=== PATIENT | female | born 1995 | race African-American/Black ===

== ENCOUNTER 2024-01-26 09:47 | Emergency (ER) | payer BC, SELFPAY ==
--- NOTE | ~2024-01-26 | US_ITS ---
EXAMINATION: US pelvic complete w TV INDICATION: Abnormal uterine bleeding. Pelvic pain. Comparison:No prior studies for comparison. TECHNIQUE: Multiple transabdominal and endovaginal sonographic images of the pelvis performed. FINDINGS: The uterus measures 8.3 x 4.2 x 4.8 cm. The endometrial complex measures 7 mm. The right ovary measures 3.2 x 1.6 x 2.2 cm and the left ovary measures 2.1 x 1.6 x 1.8 cm. There ar e small follicles in each ovary. Normal doppler signal in both ovaries. There is trace free fluid in the pelvis. There are no abnormal masses seen on either side. IMPRESSION: 1. Unremarkable pelvic ultrasound. Reviewed, dictated and finalized at location B.
[2024-01-26 09:58] VITALS: BP 127/95; PULSE 60; RESP 18; TEMP 37.1; O2SAT 100
[2024-01-26 10:08] LABS: BEDSIDEPREGUCG Negative
[2024-01-26 10:14] LABS: Basophils Absolute Auto 0.1 K/mm3 (0.0-0.1); Basophils Percent Auto 0.6 % (0.2-1.2); Eosinophils Absolute Auto 0.1 K/mm3 (0-0.3); Hematocrit 38.9 % (37.0-47.0); Hemoglobin 12.8 g/dL (12.0-15.0); Immature Granulocyte Absolute 0.02 K/mm3 (0.00-0.031); Immature Granulocyte Percent A 0.2 % (0-0.5); Lymphocytes Absolute Auto 3.75 K/mm3 (0.9-3.2); Lymphocytes Percent Auto 45.8 % (18.3-44.2); Mean Corpuscular HGB Conc 32.9 g/dl (32-36); Mean Corpuscular Hemoglobin 30.6 pg (26-34); Mean Corpuscular Volume 93.1 fl (80-100); Mean Platelet Volume 8.8 fl (7.4-10.4); Monocytes Absolute Auto 0.5 K/mm3 (0.1-0.6); Monocytes Percent Auto 5.9 % (2.6-8.5); Neutrophils Absolute Auto 3.8 K/mm3 (1.3-6.7); Neutrophils Percent Auto 46.5 % (45.5-73.1); Platelet Count Result 333 k/mm3 (150-375); Red Blood Count 4.18 M/mm3 (4.2-5.4); Red Cell Distribution Width 13.8 % (11.5-14.5); White Blood Count 8.2 K/mm3 (4.5-10.0)
[2024-01-26 10:16] LABS: Add Urine Microscopic? NO; Appearance Urine Clear (Clear); Bilirubin Urine Negative (Negative); Blood Urine Negative (Negative); Color Urine Yellow (Yellow); Glucose Urine UA Negative (Negative); Ketones Urine Negative (Negative); Leukocyte Esterase Ur Negative LEU/UL (Negative); Nitrate Urine Negative (Negative); Protein Urine Negative (Negative); Specific Grav Ur 1.026 (1.001-1.035); pH Urine 5.5 (5.0-9.0)
--- NOTE | 2024-01-26 10:26 | ED.ABDPAIN ---
HPI - Abdominal Pain General Chief Complaint: Abdominal Pain Stated Complaint: abdominal pain Time Seen by Provider: 01/26/24 09:53 Source: patient Mode of arrival: ambulatory Limitations: no limitations History of Present Illness HPI narrative: This is a 28 year old female that presents to the ER for abnormal uterine bleeding. Reports she has not had a menstrual cycle since the beginning of November. Reports she had some spotting and cramping yesterday. Was concerned about her abnormal bleeding which prompted her to be seen. Denies fever, vomiting, dysuria, hematuria. Related Data Allergies Allergy/AdvReac Type Severity Reaction Status Date / Time No Known Allergies Allergy Verified 01/26/24 09:48 Review of Systems Review of Systems: CONSTITUTIONAL: Denies fever GASTROINTESTINAL: Reports abdominal pain. Denies nausea, vomiting, or diarrhea. GENITOURINARY: Denies dysuria or hematuria. All systems reviewed & are unremarkable except as noted in HPI and below PMFSH Past Medical History Medical History (Updated 01/26/24 @ 12:33 by Leena Black PA-C) No active medical problems Social History Social History (Updated 01/26/24 @ 10:40 by Leena Black PA-C) Substance use: never Exam Narrative: GENERAL: Well-appearing, well-nourished, and in no acute distress. HEAD: Normocephalic, atraumatic. EYES: EOMI. CHEST: Clear to auscultation. No respiratory distress. No wheezes rales or rhonchi HEART: Regular rate and rhythm. No murmur heard. Normal peripheral pulses. ABDOMEN: Soft, nontender, nondistended, normal active bowel sounds. EXTREMITIES: Normal range of motion. No edema. SKIN: Warm, dry, no rash. NEURO: No focal deficits. Alert and oriented x3. PSYCH: Normal mood and affect Course Course Emergency Course: Patient updated on her workup and agrees with plan of care Vital Signs Vital signs: Vital Signs Temperature 98.8 F 01/26/24 09:58 Pulse Rate 60 01/26/24 09:58 Respiratory Rate 18 01/26/24 09:58 Blood Pressure 127/95 H 01/26/24 09:58 Pulse Oximetry 100 01/26/24 09:58 Oxygen Delivery Room Air 01/26/24 09:58 Temperature 98.8 F 01/26/24 09:58 Pulse Rate 60 01/26/24 09:58 Respiratory Rate 18 01/26/24 09:58 Blood Pressure 127/95 H 01/26/24 09:58 Pulse Oximetry 100 01/26/24 09:58 Oxygen Delivery Room Air 01/26/24 09:58 MDM - Abdominal Pain MDM Narrative Medical decision making narrative: patient presents to the emergency department for abnormal uterine bleeding and pelvic cramping. She is afebrile and nontoxic appearing. Her vitals are stable. Hemoglobin is normal. Cbc without leukocytosis. Metabolic panel without concerning findings. Urine without evidence of infection. test is negative. Patient reports she is not currently bleeding. Pelvic ultrasound is unremarkable. Patient was updated on her workup and agrees with plan of care. She is to follow up with gynecology. She was given warnings to return to the ER Differential Diagnosis Differential diagnosis: Likely endometriosis and other (UTI, , abnormal uterine bleeding, fibroid uterus, mass) Lab Data Attestation: I reviewed the patient's lab results. 01/26/24 10:06 01/26/24 10:06 Labs: Lab Results 01/26/24 01/26/24 Range/Units 10:05 10:06 WBC 8.2 (4.5-10.0) K/mm3 RBC 4.18 L (4.2-5.4) M/mm3 Hgb 12.8 (12.0-15.0) g/dL Hct 38.9 (37.0-47.0) % MCV 93.1 (80-100) fl MCH 30.6 (26-34) pg MCHC 32.9 (32-36) g/dl RDW 13.8 (11.5-14.5) % Plt Count 333 (150-375) k/mm3 MPV 8.8 (7.4-10.4) fl Immature Gran % (Auto) 0.2 (0-0.5) % Neut % (Auto) 46.5 (45.5-73.1) % Lymph % (Auto) 45.8 H (18.3-44.2) % [place] % (Auto) 5.9 (2.6-8.5) % Eos % (Auto) 1.0 (0-4.4) % Baso % (Auto) 0.6 (0.2-1.2) % Lymph # (Auto) 3.75 H (0.9-3.2) K/mm3 [place] # (Auto) 0.5 (0.1-0.6) K/mm3 Eos # (Auto) 0.1 (
[2024-01-26 10:28] LABS: Alanine Aminotransferase 17 U/L (6-35); Albumin Level 4.4 g/dL (3.5-5.1); Alkaline Phosphatase 92 U/L (38-126); Anion Gap 11 mmol/L (4-12); Aspartate Amino Transferase 29 U/L (14-36); Bilirubin,Total 1.1 mg/dL (0.2-1.3); Blood Urea Nitrogen 10 mg/dL (7-17); Calcium 8.7 mg/dL (8.4-10.2); Carbon Dioxide 27 mmol/L (22-30); Chloride 102 mmol/L (98-107); Estimated CRCL calculation 117 ml/min; Estimated Glomerular Filt Rate > 60; Glucose 107 mg/dL (65-110); Lipase 95 U/L (23-300); Potassium 3.7 mmol/L (3.4-5.0); Sodium 140 mmol/L (137-145)
[2024-01-26 12:34] VITALS: BP 104/74; PULSE 58; RESP 18; O2SAT 100
[2024-01-26 12:43] VITALS: TEMP 36.9
== END 2024-01-26 12:44 | disposition home or self-care (01) ==
PROVIDERS: Emergency Provider Physician Assistant
DX: N93.9 Abnormal uterine and vaginal bleeding, unspecified (principal)
CPT/HCPCS: 36415; 76830; 76856; 80053; 81003; 81025; 83690; 85025; 99284

== ENCOUNTER 2024-06-10 10:24 | Emergency (ER) | payer BC, SELFPAY ==
[2024-06-10 10:33] VITALS: BP 143/78; PULSE 68; RESP 18; TEMP 36.6; O2SAT 100
[2024-06-10 14:12] LABS: BEDSIDEPREGUCG Positive (Negative)
--- NOTE | 2024-06-10 14:23 | ED.GENADULT ---
HPI - General Adult General Chief complaint: Nausea/Vomiting/Diarrhea Stated complaint: vomiting, body aches Time Seen by Provider: 06/10/24 13:47 History of Present Illness HPI narrative: Patient is a 28-year-old female who presents ER with nausea and vomiting. Ongoing over last couple days. Associated with some diarrhea. No fevers or chills or sweats. Became concerned she might be . No vaginal bleeding. Bedside here positive. . Unknown LMP. Does not currently have an supervisor mattress and boxsprings. Related Data Allergies Allergy/AdvReac Type Severity Reaction Status Date / Time No Known Allergies Allergy Verified 01/26/24 09:48 Review of Systems Review of Systems: All systems reviewed & are unremarkable except as noted in HPI and below Constitutional: Constitutional: Reports no additional constitutional complaints Cardiovascular: Cardiovascular: Reports no additional cardiovascular complaints Respiratory: Respiratory: Reports no additional respiratory complaints Gastrointestinal: Gastrointestinal: Reports no additional gastrointestinal complaints Genitourinary: Genitourinary: Reports no additional female genitourinary complaints PMFSH Past Medical History Medical History (Updated 06/10/24 @ 14:25 by Fermin Gasca MD) No active medical problems Surgical History Surgical History (Updated 06/10/24 @ 14:24 by Fermin Gasca MD) No pertinent past surgical history Social History Social History (Updated 01/26/24 @ 10:40 by Leena Black PA-C) Substance use: never Exam Narrative: GENERAL: Well-appearing, well-nourished, and in no acute distress. HEAD: Normocephalic, atraumatic. ENT: Mucous membranes moist. CHEST: Clear to auscultation. No respiratory distress. HEART: Regular rate and rhythm. Normal peripheral pulses. ABDOMEN: Soft, nontender, nondistended. EXTREMITIES: Normal range of motion. No edema. NEURO: Alert and oriented x3. PSYCH: Normal mood and affect. Course Course Emergency Course: Declines antiemetics and IV fluids. Does not want her urinalysis checked. Vital Signs Vital signs: Vital Signs Temperature 97.8 F 06/10/24 10:33 Pulse Rate 68 06/10/24 10:33 Respiratory Rate 18 06/10/24 10:33 Blood Pressure 143/78 H 06/10/24 10:33 Pulse Oximetry 100 06/10/24 10:33 Oxygen Delivery Room Air 06/10/24 10:33 Temperature 97.8 F 06/10/24 10:33 Pulse Rate 68 06/10/24 10:33 Respiratory Rate 18 06/10/24 10:33 Blood Pressure 143/78 H 06/10/24 10:33 Pulse Oximetry 100 06/10/24 10:33 Oxygen Delivery Room Air 06/10/24 10:33 Medical Decision Making Vital Signs Vital Signs: Vital Signs Temperature 97.8 F 06/10/24 10:33 Pulse Rate 68 06/10/24 10:33 Respiratory Rate 18 06/10/24 10:33 Blood Pressure 143/78 H 06/10/24 10:33 Pulse Oximetry 100 06/10/24 10:33 Oxygen Delivery Room Air 06/10/24 10:33 Temperature 97.8 F 06/10/24 10:33 Pulse Rate 68 06/10/24 10:33 Respiratory Rate 18 06/10/24 10:33 Blood Pressure 143/78 H 06/10/24 10:33 Pulse Oximetry 100 06/10/24 10:33 Oxygen Delivery Room Air 06/10/24 10:33 Lab Data Labs: Lab Results 06/10/24 Range/Units 14:10 POC Urine HCG, Qual Positive (Negative) Discharge Plan Discharge Clinical Impression: Nausea and vomiting during Patient Disposition: Home, Self-Care Condition: Stable Instructions: Antibiotic Form, Acute Nausea and Vomiting (ED) Additional Instructions: Return to the ER if you cannot keep down food water, he developed vaginal bleeding, you have severe lower abdominal pain, or you have additional concerns. Patient Language: Citizen Of [place] Prescriptions: New ondansetron 4 mg tablet,disintegrating 4 mg PO Q6H PRN (Reason: nausea and vomiting) Qty: 10 0RF Follow-up/Referrals: Guillermo Meyer MD [Physician] - 1 Week PHYSICIAN,SKIN CARE CONSULTANT [Primary Care Provider] -
== END 2024-06-10 14:35 | disposition home or self-care (01) ==
PROVIDERS: Emergency Provider Emergency Medicine
DX: O21.9 Vomiting of pregnancy, unspecified (principal)
CPT/HCPCS: 81025; 99283

== ENCOUNTER 2024-10-07 21:37 | Observation (INO) | payer BC, SELFPAY ==
[2024-10-07 22:00] VITALS: BP 120/63; PULSE 75
--- OUTSIDE RECORDS SUMMARY | 2024-10-07 22:00 | XMS_ITS | Data Portability ---
Author Organization [facility] [place] , [facility] Address [address] [place] [address] Assessment No assessment recorded. Plan of Treatment Reminders Order Date Submit Date Provider Last Modified By Organization Details Last Modified Time Details Appointments OB SONOGRA M 15 2024 10:30A M ULTRASOUND [place] 2 Not available Not available Not available OB RETURN EST 2024 11:15A M REBECA ROA NP Not available Not available Not available Lab None recorde d. Referral None recorde d. Procedures None recorde d. Surgeries None recorde d. Imaging US, obstetr ic, 2nd trimest er 2024 025 [email or web address] [facility], [address] [place], [address], 10/05/2024 11:28:22 US, obstetr ic, transva ginal 2024 025 Not available 10/05/2024 11:28:22 Medication Orders None recorde d. Patient TargetsNo targets recorded. Patient InstructionsNo instructions recorded. Reason for Referral None Reported. Results Created Date Observation Date Name Description Value Unit Range Abnormal Flag Note LastModifiedBy Organization Detail LastModifiedTime 07/13/1907/14/2024 DRUG ABUSE PANEL 7 W/CON FIRM amphetamines Negati ve negati ve normal Not Available [facility] [address] [place], [address], 07/14/2024 10:31:12 07/13/19 25 07/14/2024 DRUG ABUSE PANEL 7 W/CON FIRM barbiturates Negati ve negati ve normal Not Available [facility] [address] [place], [address], 07/14/2024 10:31:12 07/13/19 25 07/14/2024 DRUG ABUSE PANEL 7 W/CON FIRM benzodiazepi john Negati ve negati ve normal Not Available [facility] [address] [place], [address], 07/14/2024 10:31:12 07/13/19 25 07/14/2024 DRUG ABUSE PANEL 7 W/CON FIRM cocaine metabolites Negati ve negati ve normal Not Available [facility] [address] [place], [address], 07/14/2024 10:31:12 07/13/19 25 07/14/2024 DRUG ABUSE PANEL 7 W/CON FIRM cannabinoids Negati ve negati ve normal Not Available [facility] [address] [place], [address], 07/14/2024 10:31:12 07/13/19 25 07/14/2024 DRUG ABUSE PANEL 7 W/CON FIRM methadone Negati ve negati ve normal Not Available [facility] [address] [place], [address], 07/14/2024 10:31:12 07/13/19 25 07/14/2024 DRUG ABUSE PANEL 7 W/CON FIRM opiates Negati ve negati ve normal Not Available [facility] [address] [place], [address], 07/14/2024 10:31:12 07/13/19 25 07/14/2024 DRUG ABUSE PANEL 7 W/CON FIRM creatinine, urine 208 mg/dL 20 - 275 normal Not Available [facility] [address] [place], [address], 07/14/2024 10:31:12 07/13/19 25 07/14/2024 CBC (INCL UDES DIFF/ PLT) WBC 10.3 thous and/u L 4.0 - 9.8 high Not Available [facility] [address] [facility] [place], [address], 07/14/2024 10:52:17 07/13/1907/14/2024 CBC (INCL UDES DIFF/ PLT) RBC 4.1 christy on/uL 3.9 - 4.9 normal Not Available [address], [address], 07/14/2024 10:52:17 07/13/19 25 07/14/2024 CBC (INCL UDES DIFF/ PLT) hemoglobin 12.5 g/dL 11.8 - 14.8 normal Not Available [address], [address], 07/14/2024 10:52:17 07/13/19 25 07/14/2024 CBC (INCL UDES DIFF/ PLT) hematocrit 38.6 % 35.5 - 44.0 normal Not Available [address], [address], 07/14/2024 10:52:17 07/13/19 25 07/14/2024 CBC (INCL UDES DIFF/ PLT) MCV 93.2 fL 82.0 - 99.0 normal Not Available [address], [address], 07/14/2024 10:52:17 07/13/19 25 07/14/2024 CBC (INCL UDES DIFF/ PLT) MCH 30.2 pg 27.2 - 32.6 normal Not Available [address], [address], 07/14/2024 10:52:17 07/13/19 25 07/14/2024 CBC (INCL UDES DIFF/ PLT) MCHC 32.4 g/dL 31.5 - 35.5 normal Not Available [address], [address], 07/14/2024 10:52:17 07/13/19 25 07/14/2024 CBC (INCL UDES DIFF/ PLT) RDW-CV 13.2 % 11.5 - 14.5 normal Not Available [address], [address], 07/14/2024 10:52:17 07/13/19 25 07/14/2024 CBC (INCL UDES DIFF/ PLT) platelet 377 thous and/u L 140 - 350 high Not Available [address], [address], 07/14/2024 10:52:17 07/13/19 25 07/14/2024 CBC (INCL UDES DIFF/ PLT) MPV 9.5 fL 9.3 - 12.4 normal Not Available [address], [address], 07/14/2024 10:52:17 07/13/19 25 07/14/2024 CBC (INCL UDES DIFF/ PLT) absolute neutrophil 5.57 thous and/u L 1.90 - 7.00 normal Not Available [address], [address], 07/14/2024 10:52:17 07/13/19 25 07/14/2024 CBC (INCL UDES DIFF/ PLT) absolute lymphocyte 3.72 thous and/u L 0.70 - 4.50 normal Not Available [address], [address], 07/14/2024 10:52:17 07/13/19 25 07/14/2024 CBC (INCL UDES DIFF/ PLT) absolute monocyte 0.82 thous and/u L 0.10 - 1.30 normal Not Available [address], [address], 07/14/2024 10:52:17 07/13/19 25 07/14/2024 CBC (INCL UDES DIFF/ PLT) absolute eosinophil 0.09 thous and/u L <0.70 normal Not Available [address], [address], 07/14/2024 10:52:17 07/13/19 25 07/14/2024 CBC (INCL UDES DIFF/ PLT) absolute basophil 0.04 thous and/u L <0.20 normal Not Available [address], [address], 07/14/2024 10:52:17 07/13/19 25 07/14/2024 CBC (INCL UDES DIFF/ PLT) absolute immature granulocyte 0.02 thous and/u L <0.03 normal Not Available [address], [address], 07/14/2024 10:52:17 07/13/19 25 07/14/2024 HEMOG LOBIN A1C hemoglobin A1C 5.1 % <5.7 normal The refer ence range for HbA1c is indic ated in the table below . Sugge sted Diagn osis =6.5% Consi stent with diabe albino 5.7 6.4% Consi stent with incre ased risk for diabe albino (pred iabet ic) <5.7% Consi stent with the absen ce of diabe albino Not Available [address], [address], 07/14/2024 10:57:34 07/13/19 25 07/14/2024 OB PANEL - STD BLOOD WORK hep BS Ag Non-Re active non-re active normal Not Available [address], [address], 07/14/2024 12:00:19 07/13/1907/14/2024 OB PANEL - STD BLOOD WORK hep C Ab Non-Re active non-re active normal Not Available [address], [address], 07/14/2024 12:00:19 07/13/1907/14/2024 OB PANEL - STD BLOOD WORK HIV 1/2 Ag/Ab Non-Re active non-re active normal Not Available [address], [address], 07/14/2024 12:00:19 07/13/19 25 07/14/2024 OB PANEL - STD BLOOD WORK syphilis Ab Non-Re active non-re active normal Not Available [facility] [address] [place], [address], 07/14/2024 12:00:19 07/13/19 25 07/14/2024 OB PANEL - STD BLOOD WORK rubella Ab IgG 197.1 IU/mL normal INTER PRETI VE INFOR MATIO N: Rubel la Antib dario, IgG. < 5.0 IU/mL ..... ..... . Not consi stent with immun ity 5.0 - 9.9 IU/mL ..... . Equiv ocal: Indet ermin ate-R epeat testi ng in 10-14 days may be helpf ul. > or = 10.0 IU/mL ... Consi stent with immun ity The prese nce of Rubel la IgG antib dario sugge st respo nse to immun izati on or prior /curr ent expos ure to the Rubel la virus . Not Available [facility] [address] [place] [address], [address], 07/14/2024 12:00:19 07/13/19 25 07/16/2024 CT/NG chlamydia trachomatis CT neg negati ve normal This repor t is inten ded for us in clini ramirez monit oring and manag ement of patie nts. It is not inten ded for use in medic al-le gal appli catio n. Not Available [facility] [address] [place], [address], 07/17/2024 08:43:24 07/13/1907/16/2024 CT/NG neisseria gonorrhoeae GC neg negati ve normal This repor t is inten ded for us in clini ramirez monit oring and manag ement of patie nts. It is not inten ded for use in medic al-le gal appli catio n. Not Available [facility] [address] [place] [address], [address], 07/17/2024 08:43:24 07/13/19 25 07/17/2024 VARIC STUART ZOSTE R VIRUS ANTIB DARIO (IGG) varicella zoster virus antibody (IgG) 22.10 S/co normal Signa l to Cut-o ff S/CO Inter preta tion ----- ---- ----- ----- ----- ----- -- <1.00 Negat layton - Antib dario not detec ronald > or = 1.00 Posit layton - Antib dario detec ronald A posit layton resul t indic ates that the patie nt has antib dario to VZV but does not diffe renti ate betwe en an activ e or past infec tion. The clini ramirez diagn osis must be inter prete d in conju nctio n with the clini ramirez signs and sympt oms of the patie nt. This assay relia grabiel measu res immun ity due to previ ous infec tion but may not be sensi tive enoug h to detec t antib odies induc ed by vacci natio n. Thus, a negat layton resul t in a vacci nated indiv idual does not neces saril y indic ate susce ptibi lity to VZV infec tion. A more sensi tive test for vacci natio n-ind uced immun ity is Varic stuart Zoste r Virus Antib dario Immun ity Scree n, ACIF. Not Available [address], [address], 07/17/2024 15:20:14 07/13/19 25 07/17/2024 HEMOG LOBIN OPATH Y EVALU ATION red blood cell count 4.06 christy on/uL 3.80-5 .10 Not Available [facility] [address] [place] [address], [address], 07/17/2024 15:20:15 07/13/19 25 07/17/2024 HEMOG LOBIN OPATH Y EVALU ATION hemoglobin 12.3 g/dL 11.7-1 5.5 Not Available [address] [address] [place], [address], 07/17/2024 15:20:15 07/13/19 25 07/17/2024 HEMOG LOBIN OPATH Y EVALU ATION hematocrit 38.1 % 35.0-4 5.0 Not Available [address] [address] [place], [address], 07/17/2024 15:20:15 07/13/1907/17/2024 HEMOG LOBIN OPATH Y EVALU ATION MCV 93.8 fL 80.0-1 00.0 Not Available [address], [address], 07/17/2024 15:20:15 07/13/1907/17/2024 HEMOG LOBIN OPATH Y EVALU ATION MCH 30.3 pg 27.0-3 3.0 Not Available [address] [place], [address], 07/17/2024 15:20:15 07/13/1907/17/2024 HEMOG LOBIN OPATH Y EVALU ATION RDW 12.9 % 11.0-1 5.0 Not Available [address], [address], 07/17/2024 15:20:15 07/13/1907/17/2024 HEMOG LOBIN OPATH Y EVALU ATION hemoglobin A 97.2 % >96.0 Not Available [address], [address], 07/17/2024 15:20:15 07/13/19 25 07/17/2024 HEMOG LOBIN OPATH Y EVALU ATION hemoglobin F <1.0 % <2.0 Not Available [address] [place], [address], 07/17/2024 15:20:15 07/13/19 25 07/17/2024 HEMOG LOBIN OPATH Y EVALU ATION hemoglobin A2 (quant) 2.8 % 2.0-3. 2 Not Available [address] [address] [place], [address], 07/17/2024 15:20:15 07/13/1907/17/2024 HEMOG LOBIN OPATH Y EVALU ATION interpretati on Afia l pheno type. Afia l hemog lobin distr ibuti on, no HgS, HgC or other abnor mal hemog lobin obser kendell. Not Available [address] [place], [address], 07/17/2024 15:20:15 07/13/1907/17/2024 ANTIB DARIO SCREE N, RBC W/REF L ID, TITER AND AG antibody screen, RBC w/refl id, titer and Ag NO ANTIBO DIES DETECT ED normal Refer ence range No antib odies detec ronald This assay is a scree dionna test for the detec tion of red blood cell antib odies . The test is not to be used for pretr ansfu phil scree dionna or for the medic al manag ement of an alloi mmuni zed pregn taylor. Not Available [address] [address] [place], [address], 07/17/2024 15:20:16 07/13/1907/17/2024 ABO GROUP AND RH TYPE ABO group B Not Available [address] [address] [place], [address], 07/17/2024 15:20:17 07/13/1907/17/2024 ABO GROUP AND RH TYPE Rh type RH(D) POSITI VE For addit ional infor maxime frost e refer to http: //[facility].Que stDia gnost ics.c om/fa q/FAQ 111 (This link is being provi ded for infor matio nal/ educa princess l purpo ses only. ) Not Available [facility] [address] [place], [address], 07/17/2024 15:20:17 07/13/19 25 07/17/2024 CULTU RE, URINE , ROUTI NE culture, urine, routine SEE NOTE CULTU RE, URINE , ROUTI NE Micro Numbe r: [id number] Test Statu s: Final Speci men Sourc e: Urine Speci men Quali ty: Adequ ate Resul t: Mixed genit al gus isola ronald. These super ficia l bacte kai are not indic ative of a urina ry tract infec tion. No furth er organ ism ident ifica tion is warra nted on this speci men. If clini tang indic ated, recol lect clean -catc h, mid-s tream urine and trans mila immed iatel y to Urine Cultu re Trans port Tube. Not Available [facility] [address] , [place], [address], 07/17/2024 15:20:18 07/14/19 25 07/14/2024 OB PANEL - STD BLOOD WORK hep BS Ag Non-Re active non-re active normal Not Available [address], [address], 07/14/2024 12:00:20 07/14/19 25 07/14/2024 OB PANEL - STD BLOOD WORK hep C Ab Non-Re active non-re active normal Not Available [address], [address], 07/14/2024 12:00:20 07/14/19 25 07/14/2024 OB PANEL - STD BLOOD WORK HIV 1/2 Ag/Ab Non-Re active non-re active normal Not Available [address], [address], 07/14/2024 12:00:20 07/14/19 25 07/14/2024 OB PANEL - STD BLOOD WORK syphilis Ab Non-Re active non-re active normal Not Available [facility] [address] [place], [address], 07/14/2024 12:00:20 07/14/19 25 07/14/2024 OB PANEL - STD BLOOD WORK rubella Ab IgG 209.8 IU/mL normal INTER PRETI VE INFOR MATIO N: Rubel la Antib dario, IgG. < 5.0 IU/mL ..... ..... . Not consi stent with immun ity 5.0 - 9.9 IU/mL ..... . Equiv ocal: Indet ermin ate-R epeat testi ng in 10-14 days may be helpf ul. > or = 10.0 IU/mL ... Consi stent with immun ity The prese nce of Rubel la IgG antib dario sugge st respo nse to immun izati on or prior /curr ent expos ure to the Rubel la virus . Not Available [facility] [address] [place], [address], 07/14/2024 12:00:20 08/14/19 25 08/13/2024 CHROM OSOME S 13, 18, 21 + SEX CHROM OSOME KIM SIS chromosomes 13, 18, 21 + sex chromosome analysis Negati ve normal See PDF for compl ete resul ts. Overa ll Resul t: Negat layton Negat layton for all order ed condi tions Clini ramirez Notes : * The resid ual risks provi ded repre sent the [facility] e that the pregn taylor is affec ronald with the indic ated chrom osome aneup loidy in view of a negat layton resul t. * This is a scree dionna test; there fore, false posit layton and false negat layton resul ts can occur . No irrev ersib le decis ion shoul d be made based on these findi ngs alone . Clini ramirez corre latio n with ultra sound findi ngs and histo ry is indic ated. If defin itive diagn osis is julienne ed, chori onic villu s sampl ing or amnio cente sis is neces ernesto. fract ion: 15.8% - fract ion is one compo nent of the algor ithm used and is combi naif with other quali ty metri cs to deter mine the aneup loidy scree dionna resul t. Not Available [facility] [address] [place] [address], [address], 2024 04:16:05 08/14/19 25 08/13/2024 BRENDAN MENTA L PANEL (CF + SMA) fundamental panel (CF + sma) Positi ve: Janet r abnormal See PDF for compl ete resul ts. Overa ll Resul t: Posit layton: Lashay er GENES IS NEELA ON: * Posit layton: Lashay er: spina l muscu lar atrop hy Not Available [facility] [address] [place] [address], [address], 08/23/2024 13:15:23 08/14/19 25 08/13/2024 CONSU LTATI ON REPOR T consultation report Please refer to attach ed PDF for Consul tation Report normal Not Available [facility] [address] [place] [address], [address], 08/27/2024 12:45:02 08/14/19 25 08/13/2024 CONSU LTATI ON REPOR T consultation report Please refer to attach ed PDF for Consul tation Report normal Not Available [facility] [address] [place] [address], [address], 08/27/2024 12:45:06 08/14/19 25 08/13/2024 BRENDAN MENTA L PLUS PANEL , BRENDAN MENTA L PANEL fundamental plus panel, fundamental panel Positi ve: Janet r abnormal See PDF for compl ete resul ts. Overa ll Resul t: Posit layton: Lashay er GENES IS NEELA ON: * Posit layton: Lashay er: spina l muscu lar atrop hy Not Available [facility] [address] [place] [address], [address], 08/30/2024 18:45:51 07/13/19 25 07/13/2024 US, trans vagin al No observ ation record ed. [email or web address] [address], [place], [address], 07/15/2024 08:54:41 07/25/19 25 07/25/2024 US, obste tric, trans vagin al No observ ation record ed. [email or web address] [address], [place], [address], 07/26/2024 07:08:20 08/24/19 25 08/22/2024 US, obste tric, limit ed No observ ation record ed. [email or web address] [address], [place], [address], 09/04/2024 13:51:11 10/06/19 , obste tric, 2nd trime ster No observ ation record ed. [email or web address] [facility] [address] [place], [address], 10/05/2024 11:24:41 10/06/19 25 10/05/2024 , obste tric, 2nd trime ster No observ ation record ed. [email or web address] [address], [place], [address], 10/05/2024 19:50:05 Result Notes None recorded. Problems Name Problem SNOMED Code Status Onset Date Resolution Date Notes Provider Name and Address Organization Details Recorded Time Primigra geovanni 042211246 Completed 201308/24/2019 Pregnanc y 1st Normal; Progress : Stable Added By: Leena Roca Add to Current Problems : NO ProblemS tatus: Resolve Not Available [facility] 2 20:45:35 Uterine size for dates discrepa ncy Completed 201901/28/2020 Uterine size-desi e discrepa ncy, third trimeste r; Progress : Stable Added By: Juana Vera Add to Current Problems : NO ProblemS tatus: Resolve Not Available [facility] 2 20:45:37 Gestatio n period, 27 weeks [id number] Completed 201901/28/2020 27 weeks gestatio n of pregnanc y; Progress : Stable Added By: Heidi Amanda Add to Current Problems : NO ProblemS tatus: Resolve Not Available [facility] 2 08:52:44 Family planning educatio n done [id number] Completed 201412/21/2015 Family planning advice; Location : None Severity : Moderate Progress : Stable Added By: Malgorzata Mcfarlane Add to Current Problems : YES ProblemS tatus: Resolve Not Available [facility] 1 05:36:45 Large fetus causing dispropo rtion - delivere d [id number] Completed 201901/28/2020 Maternal care for dispropo rtion due to unusuall y large fetus, fetus 1; Progress : Stable Added By: Leanne Prince Add to Current Problems : NO ProblemS tatus: Resolve Not Available [facility] 2 20:45:34 Low lying placenta [id number] Completed 201901/28/2020 Low lying placenta NOS or without hemorrha ge, third trimeste r; Progress : Stable Added By: Catie De Leon Add to Current Problems : NO ProblemS tatus: Resolve Not Available [facility] 2 20:45:33 Normal pregnanc y in multigra geovanni [id number] 4106 Completed 201901/28/2020 Encounte r for supervis ion of other normal pregnanc y, second trimeste r; Progress : Stable Added By: Perla Cates Add to Current Problems : NO ProblemS tatus: Resolve; Start Date : 08/24/19 Encou nter for supervis ion of other normal pregnanc y, third trimeste r; Progress : Stable Added By: Radha Casas Add to Current Problems : NO ProblemS tatus: Resolve Not Available [facility] 2 20:45:36 Gestatio n period, 30 weeks [id number] Completed 201901/28/2020 30 weeks gestatio n of pregnanc y; Progress : Stable Added By: Jennifer Arciniega Add to Current Problems : NO ProblemS tatus: Resolve Not Available [facility] 2 20:45:[address] Concept Completed 201910/04/2019 Decrease d movement s, second trimeste r, fetus 1; Progress : Stable Added By: Jose Fuller Add to Current Problems : NO ProblemS tatus: Resolve Not Available [facility] 2 20:45:32 Gestatio n period, 29 weeks [id number] Completed 201901/28/2020 29 weeks gestatio n of pregnanc y; Progress : Stable Added By: Radha Casas Add to Current Problems : NO ProblemS tatus: Resolve Not Available [facility] 2 20:45:36 Gestatio n period, 38 weeks [id number] Completed 201901/28/2020 38 weeks gestatio n of pregnanc y; Progress : Stable Added By: Radha Casas Add to Current Problems : NO ProblemS tatus: Resolve Not Available [facility] 2 20:45:35 Gestatio n period, 24 weeks [id number] Completed 201910/04/2019 24 weeks gestatio n of pregnanc y; Progress : Stable Added By: Perla Cates Add to Current Problems : NO ProblemS tatus: Resolve Not Available [facility] 2 20:45:37 Vaginiti s and vulvovag initis Completed 201408/24/2019 Bacteria l vaginiti s; Location : None Progress : Stable Added By: Myrna Juarez Add to Current Problems : NO ProblemS tatus: Current Bacteria l vaginiti s; Progress : Stable Added By: Myrna Juarez Add to Current Problems : NO ProblemS tatus: Resolve Not Available [facility] 2 20:45:32 Female genital organ symptoms [id number] Completed 201408/24/2019 Pelvic pain, female; Location : None Progress : Stable Added By: Leanne Prince Add to Current Problems : NO ProblemS tatus: Current Pelvic pain, female; Progress : Stable Added By: Leanne Prince Add to Current Problems : NO ProblemS tatus: Resolve Not Available [facility] 2 08:52:44 Pelvic and perineal pain 597467309 Completed 201901/28/2020 Pelvic and perineal pain; Progress : Stable Added By: Heidi Amanda Add to Current Problems : NO ProblemS tatus: Resolve Not Available [facility] 2 08:52:45 Gestatio n period, 37 weeks [id number] Completed 201901/28/2020 37 weeks gestatio n of pregnanc y; Progress : Stable Added By: Juana Vera Add to Current Problems : NO ProblemS tatus: Resolve [facility] 2 08:52:44 Gestatio n period, 36 weeks [id number] Completed 201901/28/2020 36 weeks gestatio n of pregnanc y; Progress : Stable Added By: Geraldine Chavez Add to Current Problems : NO ProblemS tatus: Resolve Not Available [facility] 2 20:45:35 Clinical finding Completed 201412/21/2015 Encounte r for initial prescrip tion of injectab le contrace ptive; Progress : Stable Added By: Malgorzata Mcfarlane Add to Current Problems : NO ProblemS tatus: Resolve Family planning advice; Location : None Progress : Stable Added By: Malgorzata Mcfarlane Add to Current Problems : YES ProblemS tatus: Resolve Not Available [facility] 2 20:45:34 Uterine size for dates discrepa ncy [id number] Active 2013 Uterine size date discrepa ncy, antepart um conditio n or complica tion; Location : None Added By: Chinyere Braswell Add to Current Problems : NO ProblemS tatus: Current Not Available [facility] 1 13:51:37 Gestatio n period, 32 weeks [id number] Completed 201901/28/2020 32 weeks gestatio n of pregnanc y; Progress : Stable Added By: Catie De Leon Add to Current Problems : NO ProblemS tatus: Resolve Not Available [facility] 2 20:45:37 Gestatio n period, 23 weeks [id number] Completed 201910/04/2019 23 weeks gestatio n of pregnanc y; Progress : Stable Added By: Leena Roca Add to Current Problems : NO ProblemS tatus: Resolve Not Available [facility] 2 08:52:44 Gestatio n period, 34 weeks [id number] Completed 201901/28/2020 34 weeks gestatio n of pregnanc y; Progress : Stable Added By: Cece Ulloa Add to Current Problems : NO ProblemS tatus: Resolve Not Available [facility] 2 20:45:34 Gestatio n period, 21 weeks [id number] Completed 201910/04/2019 21 weeks gestatio n of pregnanc y; Progress : Stable Added By: Perla Cates Add to Current Problems : NO ProblemS tatus: Resolve Not Available [facility] 2 20:45:36 Antenata l screenin g Completed 201901/28/2020 Encounte r for antenata l screenin g for Streptoc occus B; Progress : Stable Added By: Geraldine Chavez Add to Current Problems : NO ProblemS tatus: Resolve Encounte r for other specifie d antenata l screenin g; Progress : Stable Added By: Radha Casas Add to Current Problems : NO ProblemS tatus: Resolve; Start Date : 08/24/19 20 Not Available [facility] 2 08:52:43 Postpart um care Completed 201410/18/2015 Visit for routine postpart um follow-u p; Location : None Progress : Stable Added By: Madeleine Pitt Add to Current Problems : YES ProblemS tatus: Resolve Not Available [facility] 2 20:45:32 Screenin g for malignan t neoplasm of cervix Completed 201910/04/2019 Encounte r for screenin g for malignan t neoplasm of cervix; Progress : Stable Added By: Perla Cates Add to Current Problems : NO ProblemS tatus: Resolve Not Available [facility] 2 20:45:35 Pregnanc y [id number] Active 2024 Radha Casas CNM [address] [place], [address] , [facility] 5 08:25:09 Carrier of spinal muscular atrophy [id number] Active 2024 REBECA ROA NP [address] [place], [address] , [place] [facility] 11:14:27 Problem Notes None recorded. Procedures Surgical History Date Name Laterality Status Provider Name and Address Organization Details Recorded Time 0 Date of Last Pap Smear completed Pati Rodriguez [facility] 06/24/2021 20:15:10 Imaging Results Imaging Date Name Status LastModified by Organization Details LastModified Time 07/13/2024 US, transvaginal completed [email or web address] [address], [place], [address], 07/15/2024 08:54:41 07/25/2024 US, obstetric, transvaginal completed [email or web address] [address], [place], [address], 07/26/2024 07:08:20 08/22/2024 US, obstetric, limited completed [email or web address] [address], [place], [address], 09/04/2024 13:51:11 10/05/2024 US, obstetric, 2nd trimester completed [email or web address] [facility] [address] [place], [address], 10/05/2024 11:24:41 10/05/2024 US, obstetric, 2nd trimester active [email or web address] [address], [place], [address], 10/05/2024 19:50:05 Procedure Notes None recorded. Medical Equipment None Reported. Allergies No known drug allergies Medications Name Sig Start Date Stop Date Status Note LastModified by Organization Details LastModified Time docusate sodium 50 mg/5 mL oral liquid TAKE 10 ML BY MOUTH EVERY DAY 07/20 completed Not Available Not Available Not Available fluoxetin e 10 mg tablet take 1 tablet (10 mg) by oral route once daily 04/22 completed FLUoxeti ne 10 mg oral tablet RxNorm: 198911 Allow Substitu tion: True Refill Denied: No Edited by: Araseli hyde(Schifa no, Anja B) on 04/22/20 Stopped by: Araseli hyde(Schifa no, Anja B) on 04/22/20 20 Not Available Not Available Not Available Anucort-H C 25 mg supposito ry UNWRAP AND INSERT 1 SUPPOSIT ORY RECTALLY TWICE DAILY 07/13 completed Not Available Not Available Not Available Vitamin tablet Take 1 tablet(s ) by mouth daily 11/26 completed Multivit carrillo Tablet Allow Substitu tion: True Refill Denied: No Not Available Not Available Not Available Zofran 4 mg tablet 1 tablet by mouth every 4-6 hours as needed for nausea 09/12 completed Zofran 4mg Tablet RxNorm: 778358 Allow Substitu tion: True Refill Denied: No Not Available Not Available Not Available amoxicill in 875 mg tablet TAKE 1 TABLET BY MOUTH EVERY 12 HOURS 07/13 completed Not Available Not Available Not Available Metrogel Vaginal 0.75 % (37.5 mg/5 gram) Insert 1 applicat orful(s) in vagina at bedtime for 5 days 11/12 completed MetroGel 0.75% Vaginal Gel RxNorm: 166308 Allow Substitu tion: True Refill Denied: No Not Available Not Available Not Available Depo-Prov era 150 mg/mL intramusc ular suspensio n 1 injectio n IM q3mos. Please fill and bring to office prior to appt. 08/17 completed Depo-Pro vera 150mg/1m l Injectio n RxNorm: [id number] Allow Substitu tion: True Refill Denied: No Not Available Not Available Not Available fluoxetin e 20 mg tablet take 1 tablet (20 mg) by oral route every day 06/11 completed FLUoxeti ne 20 mg oral tablet RxNorm: 898195 Allow Substitu tion: True Refill Denied: No Edited by: Araseli hyde(Schifa no, Anja B) on 04/18/20 Stopped by: Araseli hdye(Schifa no, Anja B) on Not Available Not Available Not Available docusate sodium 100 mg capsule TAKE 1 CAPSULE BY MOUTH TWICE DAILY 06/26 completed Not Available Not Available Not Available Prozac 10 mg capsule take 1 capsule (10 mg) by oral route once daily 04/09 completed PROzac 10 mg oral capsule RxNorm: 800760 Allow Substitu tion: True Refill Denied: No Edited by: Araseli hyde(Schifa no, Anja B) on 04/09/20 Stopped by: Araseli hyde(Schifa no, Anja B) on 04/09/20 Not Available Not Available Not Available ondansetr on 4 mg disintegr ating tablet 06/11 completed Not Available Not Available Not Available metoclopr amide 10 mg tablet TAKE 1 TABLET BY MOUTH FOUR TIMES DAILY 08/10 completed Not Available Not Available Not Available NuvaRing 0.12 mg-0.015 mg/24 hr vaginal insert 1 vaginal ring by vaginal route once a month leave in place for 3 weeks, remove for 1 week 06/11 completed Not Available Not Available Not Available 06/18 (28) 1 mg-20 mcg (21)/75 mg (7) tablet Take 1 tablet(s ) by mouth daily as directed . 03/21 completed 06/18 28 Day 20mcg/1m g/75mg Tablet Allow Substitu tion: True Refill Denied: No For Problem: Family planning advice Not Available Not Available Not Available folic acid 10/05 completed Not Available Not Available Not Available 08/10 completed Not Available Not Available Not Available Miralax 08/10 completed Not Available Not Available Not Available levonorge strel 1.5 mg tablet take 1 tablet (1.5 mg) by oral route once 02/07 completed levonorg estreL 1.5 mg oral tablet RxNorm: 116238 Allow Substitu tion: True Refill Denied: No Edited by: Juana Garcia ) on 02/08/20 Stopped by: Juana Garcia ) on 09/11/20 20 Not Available Not Available Not Available Francia baldwin Complete active Not Available Not Available Not Available Vitals Date Recorded Body height Body weight Body temperature Systolic blood pressure Diastolic blood pressure Provider Name and Address Organization Details Last Updated DateTime 5 170.18 cm 34344.0 6637 g 97.9 [degF] 118 mm[Hg] 80 mm[Hg] Charity Funes [facility] 5 11:49:05 Date Recorded Body height Body weight Body mass index (BMI) Systolic blood pressure Diastolic blood pressure Provider Name and Address Organization Details Last Updated DateTime 08/10/2024 172.72 cm 37857.58 244 g 32.2 kg/m2 116 mm[Hg] 78 mm[Hg] Mayra Aponte [facility] 5 10:07:27 Date Recorded Body height Body mass index (BMI) Body weight Systolic blood pressure Diastolic blood pressure Provider Name and Address Organization Details Last Updated DateTime 08/22/2024 172.72 cm 32.1 kg/m2 58341.27 g 120 mm[Hg] 70 mm[Hg] Erika Morris [facility] 5 14:45:44 Date Recorded Body weight Body mass index (BMI) Body height Systolic blood pressure Diastolic blood pressure Provider Name and Address Organization Details Last Updated DateTime 09/07/2024 02271.76 718 g 32.5 kg/m2 172.72 cm 112 mm[Hg] 76 mm[Hg] Mayra Aponte [facility] 5 10:12:35 Date Recorded Body height Body mass index (BMI) Body weight Systolic blood pressure Diastolic blood pressure Provider Name and Address Organization Details Last Updated DateTime 10/05/2024 172.72 cm 32.7 kg/m2 88381.36 g 102 mm[Hg] 60 mm[Hg] Any Macias [facility] 5 11:03:33 Social History Question Answer Notes LastModified by Organizat ion Details LastModified Time Tobacco Smoking Status Former Smoker Mayra Aponte elle, [facility] 08/10/2024 10:10:06 What Is Your Level Of Alcohol Consumption? None [email or web address] Information not available 08/10/2024 How Many Times Per Week Do You Consume Alcohol? Less Than 1 Time Per Week [email or web address] Information not available 08/10/2024 If You Are , What Was Your Level Of Alcohol Consumption Prior To ? Occasional [email or web address] Information not available 08/10/2024 How Many Years Have You Consumed Alcohol? 8 [email or web address] Information not available 08/10/2024 Are You Blind Or Do You Have Difficulty Seeing? No [email or web address] Information not available 07/20/2024 Are You Deaf Or Do You Have Serious Difficulty Hearing? No [email or web address] Information not available 07/20/2024 What Type Of Diet Are You Following? REGULAR [email or web address] Information not available 08/10/2024 When Did You Quit Smoking? 1-5yearssincel astcigarette [email or web address] Information not available 08/10/2024 How Many Children Do You Have? 2 [email or web address] Information not available 06/11/2024 What Is Your Relationship Status? Single Information not available 06/24/2021 Are You Sexually Active? Yes Information not available 06/24/2021 At What Age Did You Start Smoking Tobacco? 16 [email or web address] Information not available 08/10/2024 What Types Of Sporting Activities Do You Participate In? Walking Information not available 06/24/2021 Do You Use Any Illicit Or Recreational Drugs? No [email or web address] Information not available 07/20/2024 How Many Years Have You Smoked Tobacco? 6 [email or web address] Information not available 08/10/2024 Do You Or Have You Ever Used Any Other Forms Of Tobacco Or Nicotine? No [email or web address] Information not available 08/10/2024 Sex: Unknown Functional Status Question Answer Note LastModified by Organization D etails LastModified Time What is your exercise level? None [email or web address] Information not available 08/10/2024 Mental Status None recorded. Family History Relationship Description Onset Age of this Age Resolved Age Notes LastModified by Organization Details LastModified Time Paternal Grandmother Type 2 diabetes mellitus [email or web address] Not available 05/31 20:16:37 Paternal Uncle Type 2 diabetes mellitus [email or web address] Not available 05/31 20:16:37 Medical History Condition Response Other Cancer N High Blood Pressure N Colon Cancer N Cytomegalovirus N Hyperthyroidism N Blood Transfusion N MRSA N Herpes (HSV) N Breast Cancer N Lung Cancer N Hypothyroidism N Depression N Incontinence N Panic Attacks N Neurological Disorder N Deep Vein Thrombosis N Anxiety Disorder N Autoimmune disease N Arthritis N Shingles N Tuberculosis/Positive PPD N Infertility N Polycystic Ovarian Syndrome N Cervical Cancer N Chlamydia N Hematuria N Stroke N Varicosities N Seasonal allergies N Crohn's Disease N Alzheimer's/Dementia N COPD/Emphysema N Endometriosis N HPV/Genital Warts N IBS (Irritable Bowel Syndrome) N History of Abnormal Pap N High Cholesterol N Liver Disease N Kidney Infection N Fibromyalgia N Ulcer N Kidney Disease N HIV N Gallbladder disease N Von Willebrand disease N Sickle Cell Disease/Trait N ADD/ADHD N Eating Disorder N Diabetes Mellitus (non-insulin dependent ) N Anemia N Ovarian Problems N Multiple Sclerosis N Gonorrhea N Frequent Urinary Tract infections N Osteopenia N Headaches/migraines N GERD (reflux) N Ovarian Cancer N Diabetes (insulin dependent) N Seizures/Epilepsy N Breast Problems N Fibroids N Asthma N Heart Attack N Endometrial Cancer N Lupus N Rubella N Blood Clotting Disorder N Bipolar Disorder N Diabetes Mellitus (during ) N Ulcerative Colitis N Hepatitis N Heart Disease N Pulmonary Embolism N RPR N Chicken Pox N Osteoporosis N Gynecological History Statement/Question Response Date of Last Colonoscopy Date of LMP 05/15/2024 Most Recent Bone Density Date of Last Pap Smear 08/24/2019 Most Recent Mammogram Current Control Method Age at Menarche 11 Obstetrics History GPAL:G 3 P 2 0 0 2 Type Value Full Term 2 Living 2 Total 3 Past Encounters Encounter ID Performer Location Encounter Start Date Encounter Closed Date Diagnosis/Indication Diagnosis SNOMED-CT Code Diagnosis ICD10 Code Diagnosis Note [id number] Radha Casas CNM [facility] [address] [place] [address] 06/11/2024 12:40:09 06/11/2024 13:26:33 Generalized abdominal pain 447915962 R10.84 No evidence of IUP on US. F/u in 4 wks.bleedi ng precaution s discussed. Start prenatalsP t will schedule NOB appt w/[facility] [id number] REBECA ROA NP [facility] [address] [place] [address] 06/26/2024 13:58:32 06/26/2024 15:41:50 Acute constipation 242006477 K59.00 Patient reports that she cannot swallow docusate. liquid prescribed . Patient to keep scheduled appointmen t for confirmati on. Nausea and vomiting in 6688122900 O21.9 Bleeding hemorrhoids 515 50168 K64.9 Patient was seen in the ER for a rectal bleeding from an inflamed external hemorrhoid . Patient reports that the PA in the ER stated that there was a small amount of blood in the vaginal vault. patient denies VB or abnormal discharge. Patient advised to increase water intake and take prescribed stool softeners. [id number] Radha Casas CNM [facility] [address] [place] [address] 07/13/2024 12:01:59 07/15/2024 10:06:03 Uncertain viability of 442867131 O36.80X0 IUP w/+cardiac activity. Small CRISTIANO @ 1.93 cmAdvised pt to f/u immediatel y if temp>101.; abdominal pain, vaginal bleeding greater than 1 pad/hr for greater than 2 hours; vaginal bleeding with or without cramping; bleeding w/clots; cramping like a period.F/u next routine appointmen t for NOB visit sooner if experienci ng more spotting. screening 2437 52168 Z36.89 [id number] REBECA ROA NP [facility] [address] [place] [address] 07/20/2024 16:20:13 07/26/2024 14:00:54 Bleeding from female genital tract during 5034263632 3451663 O46.90 discussed Vaginal spotting occurs in half of all pregnancie s, especially in the first 12 weeks. Most of the time, spotting will resolve on its own. It often occurs after intercours e or after straining to use the bathroom when constipate d and is not a sign of miscarriag e.advised to avoid intercours e after an episode of bleeding patient verbalises understand ing. RTC for 1st ob visit. [id number] ROCIO SINGLETON [facility] [address] [place] [address] 07/25/2024 12:14:47 07/26/2024 14:26:30 Gestation period, 10 weeks 37458493 Z3A.10 Spotting p er vagina in 512538834 O26.851 Subchorionic hematoma 60 2242700 O20.8 [id number] CHARITY ROBLEDO NP [facility] [address] [place] [address] 08/02/2024 11:38:38 08/06/2024 15:59:43 Pain in pelvis 85044439 R10.2 Pt is here for a MINDA appointmen t. She is taking vitamins. She has no complaints or questions. Reports feeling movement. Denies vaginal bleeding, abdominal cramps, N/V, contractio ns, or LOF. Denies headache, vision changes, swelling of hands or face, and epigastric pain. Discussed PTL and precaution s given. There are no identifiab le risk factors for pre-term labor. Reminded pt that I do not delivery babies.RTC - keep next scheduled appt Gestation period, 11 weeks 00192374 Z3A.11 Multigravida 843947371 Z 34.81 [id number] REBECA ROA NP [facility] [address] [place] [address] 08/10/2024 10:01:53 08/10/2024 10:29:02 Gestation period, 12 weeks 38941828 Z3A.12 Normal 2465868 2 Z34.90 Pt is here for a MINDA appointmen t. She is taking vitamins. She has no complaints or questions. Reports feeling movement. Denies vaginal bleeding, abdominal cramps, N/V, contractio ns, or LOF. Denies headache, vision changes, swelling of hands or face, and epigastric pain. Discussed PTL and precaution s given. There are no identifiab le risk factors for pre-term labor. [id number] Radha Casas CNM [facility] [address] [place] [address] 08/22/2024 14:14:02 08/22/2024 18:01:41 Gestation period, 14 weeks 79525520 Z3A.14 +CA on USAdvised pt to f/u immediatel y if temp>101.; abdominal pain, vaginal bleeding greater than 1 pad/hr for greater than 2 hours; vaginal bleeding with or without cramping; bleeding w/clots; cramping like a period. [id number] REBECA ROA GRADUATION COACH [facility] [address] [place] [address] 09/07/2024 10:05:32 09/12/2024 13:54:03 Normal 65900932 Z34.90 Pt is here for a MINDA appointmen t. She is taking vitamins. She has no complaints or questions. Reports feeling movement. Denies vaginal bleeding, abdominal cramps, N/V, contractio ns, or LOF. Denies headache, vision changes, swelling of hands or face, and epigastric pain. Discussed PTL and precaution s given. There are no identifiab le risk factors for pre-term labor. Gestation period, 16 weeks 89781471 Z3A.16 [id number] REBECA ROA GRADUATION COACH [facility] [address] [place] [address] 10/05/2024 09:57:59 10/05/2024 11:28:22 Normal 44607506 Z34.90 Pt is here for a MINDA appointmen t. She is taking vitamins. She has no complaints or questions. Reports feeling movement. Denies vaginal bleeding, abdominal cramps, N/V, contractio ns, or LOF. Denies headache, vision changes, swelling of hands or face, and epigastric pain. Discussed PTL and precaution s given. There are no identifiab le risk factors for pre-term labor. Gestation period, 20 weeks 43934497 Z3A.20 Health Concerns Section Related Observation LastModified by Organization Detai ls LastModified Time None Recorded Concern Status LastModified by Organization Details LastModified Time None Recorded Advance Directives Directive None Recorded Payers Insurance Date Sequence Insurance Name Policy Number Policy Snow Covered Member ID Snow Member ID Guarantor Name 10/05/2024 1 [facility] (MEDICAID REPLACEMENT - HMO) [id number] Layne Schwartz [id number] Layne Schwartz Notes Date Note Type Note Provider Name and Address Organization Details Recorded Time 08/02/2024 text/html OB ProblemReport ed bypatient.Location:[place] Onset/Timing:abrupt; intermittent episodes; worse in the evening; present throughout the day Duration:persistent Quality:sharp; cramping; worsening Severity:moderate Alleviating Factors:none Aggravating Factors:none Associated Symptoms:no abdominal pain; no bleeding; no ROM; no vaginal discharge; no vaginal/vulvar itching or irritation; no dysuria; no frequency; no urgency; no hematuria; no fever; no nausea; no emesis; no constipation; no diarrhea/loose stool; no edema; no visual changes; no headache; no dizziness; no decrease in urine volume; no breathlessness; no hyper-reflexia;crampi ng;contractions CHARITY ROBLEDO NP [address] [place], [address], [facility] IV 08/05/2024 23:05:15 08/10/2024 text/html Patient is here today for a routine OB visit. She is currently at {{6 7 8 9 10 11 12 13 14 15 16 17 18 19 20 21 22 23 24 25 26 27 28 29 30 31 32 33 34 35 36 37 38 39 40 41 12.6#}} weeks gestation. vitamins: {{yes no*}} She {{has has not*}} felt movement.She denies any complaints of the presence of vaginal bleed, leaking fluid, abdominal cramps, nausea, vomiting, headache or visual disturbances. Pt. states that when she turnt over this morning she felt a sharp pain. Pt. would like pap done REBECA ROA NP [address] [place], [address], [facility] IV 08/10/2024 10:26:52 08/22/2024 text/html Patient is here today for a routine OB visit. She is currently at {{6 7 8 9 10 11 12 13 14 15 16 17 18 19 20 21 22 23 24 25 26 27 28 29 30 31 32 33 34 35 36 37 38 39 40 41 }} weeks gestation.14.4 vitamins: {{yes* no}} She {{has has not*}} felt movement. She denies any complaints of the presence of vaginal bleed, leaking fluid, abdominal cramps, nausea, vomiting, headache or visual disturbances. Patient c/o that she cant feel the baby movements Radha Casas, CNM [address] [place], [address], [facility] IV 08/22/2024 15:06:42 09/07/2024 text/html Patient is here today for a routine OB visit. She is currently at {{6 7 8 9 10 11 12 13 14 15 16 17 18 19 20 21 22 23 24 25 26 27 28 29 30 31 32 33 34 35 36 37 38 39 40 41 16.6#}} weeks gestation. vitamins: {{yes no*}} She {{has* has not}} felt movement.She denies any complaints of the presence of vaginal bleed, leaking fluid, abdominal cramps, nausea, vomiting, headache or visual disturbances. Pt. has questions about Folic Acid REBECA ROA NP [address] [place], [address], [facility] IV 09/11/2024 11:07:59 10/05/2024 text/html Patient is here today for a routine OB visit. She is currently at {{6 7 8 9 10 11 12 13 14 15 16 17 18 19 20 21 22 23 24 25 26 27 28 29 30 31 32 33 34 35 36 37 38 39 40 41 20.6#}} weeks gestation. vitamins: {{yes no*}} She {{has has not*}} felt movement. She denies any complaints of the presence of vaginal bleed, leaking fluid, abdominal cramps, nausea, vomiting, headache or visual disturbances. REBECA ROA NP [address] [place], [address], [facility] IV 10/05/2024 11:26:22 OBGyn Episode Ob Episode Information Episode Created Date Number of Fetuses Patient Bloodtype Patient rh Status Prepregnancy Weight lbs Domestic Partner Domestic Partner Phone Father Name Pole Setter Status 08/14/19 22 1 CLOSED Fetus Data First Name Last Name Admitted to NICU Weight (g) Sex Living Outcome Pediatric Complications Fetus ID Race Codes Race Delivery Type 3401.94 F Full Term [id number] Renny Calculation Initial Rneny Date Initial Exam Date Initial Exam Provider Initial Ultrasound Date Last Menstrual Period Date Ultra Sound Weeks Gestation 0 Eighteen To Twenty Week Renny Update Ultra Sound Date Fundal Height At Umbil Quickening Date Ultra Sound Latest Weeks Gestation Final Renny Confirmed By Final Renny Confirmed Date Final Renny Date Ultra Sound Latest Days Gestation 0 0 Menstrual History Last Menstrual Date Menses Monthly On Bcp Conception Prior Menses Frequency Hcg Plus Date Menarche Onset Age Delivery Information Delivery Date Delivery Type Labor Anesthesia Weeks Gestation Incision Type Labor Labor Length Hrs Delivered By Post Complications Tubal Sterilization Discharge Date Comments 5 38 false Discharge Information Feeding Method Contraceptive Method Maternal HG B and HCT Levels Ob Episode Information Episode Created Date Number of Fetuses Patient Bloodtype Patient rh Status Prepregnancy Weight lbs Domestic Partner Domestic Partner Phone Father Name Pole Setter Status 08/14/19 22 1 CLOSED Fetus Data First Name Last Name Admitted to NICU Weight (g) Sex Living Outcome Pediatric Complications Fetus ID Race Codes Race Delivery Type 3628.73 6 F Full Term [id number] Renny Calculation Initial Renny Date Initial Exam Date Initial Exam Provider Initial Ultrasound Date Last Menstrual Period Date Ultra Sound Weeks Gestation 0 Eighteen To Twenty Week Renny Update Ultra Sound Date Fundal Height At Umbil Quickening Date Ultra Sound Latest Weeks Gestation Final Renny Confirmed By Final Renny Confirmed Date Final Renny Date Ultra Sound Latest Days Gestation 0 0 Menstrual History Last Menstrual Date Menses Monthly On Bcp Conception Prior Menses Frequency Hcg Plus Date Menarche Onset Age Delivery Information Delivery Date Delivery Type Labor Anesthesia Weeks Gestation Incision Type Labor Labor Length Hrs Delivered By Post Complications Tubal Sterilization Discharge Date Comments 0 39 false Comments : Shoulder Dystocia Discharge Information Feeding Method Contraceptive Method Maternal HG B and HCT Levels Ob Episode Information Episode Created Date Number of Fetuses Patient Bloodtype Patient rh Status Prepregnancy Weight lbs Domestic Partner Domestic Partner Phone Father Name Pole Setter Status 07/15/19 25 1 B Positive OPEN Fetus Data First Name Last Name Admitted to NICU Weight (g) Sex Living Outcome Pediatric Complications Fetus ID Race Codes Race Delivery Type [id number] Problems Problem Notes Problem Name Start Date End Date Resolution Snomed Code Not e Carrier of spinal muscular atrophy 08/27/2024 [id number] Renny Calculation Initial Renny Date Initial Exam Date Initial Exam Provider Initial Ultrasound Date Last Menstrual Period Date Ultra Sound Weeks Gestation 02/16/2025 07/15/2024 07/13/2024 05/12/2024 8 Eighteen To Twenty Week Renny Update Ultra Sound Date Fundal Height At Umbil Quickening Date Ultra Sound Latest Weeks Gestation Final Renny Confirmed By Final Renny Confirmed Date Final Renny Date Ultra Sound Latest Days Gestation 0 0 Pre-lindsey Flowsheet Flowsheet Date 07/20/2024 Salgado Score Blood Edema Fundus Height Fundus Units Glucose Ketones Leukocytes Nitrite Labor Signs Protein Cervic Dilation Cervic Effacement Cervic Station none neg Type Weight in lbs Pre/Post Dialysis Refused Weight 211.214872559356 BP Diastolic BP Location Tested BP Systolic BP Type 76 112 Fetus Heart Rate Present A 168 Present Fetus Movement A No Comments Patient here with reports of having bleeding on Tuesday and Tue of this week described as thick brown blood. patient diagnosed with a subchorionic hemorrhage on 07/13 and wanted a follow up. No bleeding currently discussed bleeding precautions. RTC on Scheduled NOB appt. Flowsheet Date 07/25/2024 Salgado Score Blood Edema Fundus Height Fundus Units Glucose Ketones Leukocytes Nitrite Labor Signs Protein Cervic Dilation Cervic Effacement Cervic Station none none Bleeding neg Type Weight in lbs Pre/Post Dialysis Refused 212.493046940007 BP Diastolic BP Location Tested BP Systolic BP Type 78 120 Fetus Heart Rate Present A 163 Present Fetus Movement A No Comments C/O continued vaginal spotti ng. US today shows CRISTIANO that has decreased since last visit. Education provided on CRISTIANO and reassuring US today. Bleeding precautions reivewed. Patient will keep scheduled appointment. Flowsheet Date 08/02/2024 Salgado Score Blood Edema Fundus Height Fundus Units Glucose Ketones Leukocytes Nitrite Labor Signs Protein Cervic Dilation Cervic Effacement Cervic Station none none none 1+ Type Weight in lbs Pre/Post Dialysis Refused With clothes [id number] BP Diastolic BP Location Tested BP Systolic BP Type 80 118 sitting Fetus Heart Rate Present A 163 Present Fetus Movement A No Comments OB problem visit. c/o crampi ng. Denies any LOF or vaginal bleeding. Has not tried any tylenol & per partner she only drank 1 bottle of water yesterday. Educated her on needing to drink 8-12 glasses of water daily. Keep next scheduled appt. Flowsheet Date 08/10/2024 Salgado Score Blood Edema Fundus Height Fundus Units Glucose Ketones Leukocytes Nitrite Labor Signs Protein Cervic Dilation Cervic Effacement Cervic Station none neg Type Weight in lbs Pre/Post Dialysis Refused [id number] BP Diastolic BP Location Tested BP Systolic BP Type 78 116 sitting Fetus Heart Rate Present A 148 Present Fetus Movement A Yes Comments No OB complaints. NIPT and c arrier today. RTC in 4 wks Flowsheet Date 08/22/2024 Salgado Score Blood Edema Fundus Height Fundus Units Glucose Ketones Leukocytes Nitrite Labor Signs Protein Cervic Dilation Cervic Effacement Cervic Station Type Weight in lbs Pre/Post Dialysis Refused With clothes [id number] BP Diastolic BP Location Tested BP Systolic BP Type 70 120 sitting Fetus Heart Rate Present A 151 Fetus Movement Comments Pt concerned that she has no t felt any movement. Usually feels flutters. Discussed movement in detail. F/u next routine appt. Flowsheet Date 09/07/2024 Salgado Score Blood Edema Fundus Height Fundus Units Glucose Ketones Leukocytes Nitrite Labor Signs Protein Cervic Dilation Cervic Effacement Cervic Station none none neg Type Weight in lbs Pre/Post Dialysis Refused [id number] BP Diastolic BP Location Tested BP Systolic BP Type 76 112 sitting Fetus Heart Rate Present A 150 Present Fetus Movement A Yes Comments C/O RLP. discussed mov ement at 16 weeks. RTC in 4 wks for anatomy US. Flowsheet Date 10/05/2024 Salgado Score Blood Edema Fundus Height Fundus Units Glucose Ketones Leukocytes Nitrite Labor Signs Protein Cervic Dilation Cervic Effacement Cervic Station Type Weight in lbs Pre/Post Dialysis Refused With clothes [id number] BP Diastolic BP Location Tested BP Systolic BP Type 60 102 sitting Fetus Heart Rate Present A 144 Present Fetus Movement A Yes Comments anatomy incomplete 49%tile a nterior placenta. RTC in 4 wks to complete US Menstrual History Last Menstrual Date Menses Monthly On Bcp Conception Prior Menses Frequency Hcg Plus Date Menarche Onset Age 1205/12/2024 Delivery Information Delivery Date Delivery Type Labor Anesthesia Weeks Gestation Incision Type Labor Labor Length Hrs Delivered By Post Complications Tubal Sterilization Discharge Date Comments Discharge Information Feeding Method Contraceptive Method Maternal HG B and HCT Levels
--- OUTSIDE RECORDS SUMMARY | 2024-10-07 22:00 | XMS_ITS | Encounter Summary ---
Author Organization [facility] Address [address] [facility] [place] [address] Phone Care Team Providers Care Ad Setter Name Role Phone Provider, None Primary Care Provider Unavailabl e Encounter Details Date Type Department Care Team (Late st Contact Info) Description 12/15/2022 [facility] [address] [place] [address] Chuck Zafar, PAC [address] [place] [address] Encounter for pre-employment examination Social History Tobacco Use Types Packs/Day Years Used Date Smoking Tobacco: Never Assessed Comments Unknown Sex and Gender Information Value Date Recorded Sex Assigned at Not on file Legal Sex Female 10:19 AM CDT Gender Identity Not on file Sexual Orientation Not on file COVID-19 Exposure Response Date Recorded In the last 10 days, have yo u been in contact with someone who was confirmed or suspected to have Coronavirus/COVID-19? Unable to assess 12/15/2022 10:58 AM CDT documented as of this encounter Plan of Treatment Not on file documented as of this encounter Procedures Procedure Name Priority Date/Time Associated Diagnosis Comments QUANTIFERON-TB GOLD PLUS Routine 12/15/2022 10:25 AM CDT Encounter for pre-employment examination documented in this encounter Results * QUANTIFERON-TB GOLD PLUS (12/15/2022 10:25 AM CDT) NIL CONTROL 0.42 <8.01 IU/mL 12/17/2022 9:48 AM CDT [facility] TB ANTIGEN 1 0.06 <0.35 IU/mL 12/17/2022 9:48 AM CDT [facility] TB ANTIGEN 2 0.13 <0.35 IU/mL 12/17/2022 9:48 AM CDT [facility] MITOGEN CONTROL 9.58 >0.49 IU/mL 12/18/19 9:48 AM CDT [facility] INTEPRETATION TB NEGATIVE NEGATIVE, NEGATIVE (TB antigen response less than 25% of internal negative control value) 12/17/2022 9:48 AM CDT [facility] Comment:No immune response t o Mycobacterium tuberculosis antigens was noted. M. tuberculosis infection unlikely. Blood No Phlebotomy Charged / Unknown 12/15/2022 10:25 AM CDT 12/15/2022 12:53 PM CDT Narrative [facility] - 12/17/2022 9:48 AM CDT A POSITIVE QUANTIFERON-TB GOLD PLUS RESULT SHOULD NOT BE THE SOLE OR DEFINITIVE BASIS FOR DETERMINING INFECTION WITH M.TUBERCULOSIS. Diagnosing or excluding tuberculosis disease, and assessing the probability of LTBI, requires a combination of epidemiological, historical, medical and diagnostic findings (e.g., acid fast bacilli (AFB) smear and culture, chest xray) that should be taken into account when interpreting QFT-Plus results. Furthermore, the magnitude of the measured gamma interferon level cannot be correlated to stage or degree of infection, level of immune responsiveness, or likelihood for progression to active disease. The Nil control adjusts for background (e.g., elevated levels of circulating gamma interferon or presence of heterophile antibodies). The Mitogen control serves as an internal positive control and verifies each specimen tested can produce a gamma interferon response. Low mitogen may occur with insufficient lymphocytes, reduced lymphocyte activity due to improper specimen handling, filling/mixing of the mitogen tube, or inability of the patient's lymphocytes to generate gamma interferon. Infection with other Mycobacteria, including M. kansasii, M. szulgai, and M. marinum, may cause false positive results. A negative QuantiFERON-TB Gold Plus result does not preclude the possibility of M. tuberculosis infection or tuberculosis disease: false negative results can be due to incorrect blood sample collection/ improper handling of the specimen, stage of infection (e.g., specimen obtained prior to the development of cellular immune response), co-morbid conditions which affect immune function, or other individual immunological factors. The minimum number of lymphocytes required for a reliable test has not been established and may also be variable. Diagnostic testing for Mycobacterium tuberculosis using Interferon Gamma Release Assays should follow applicable published guidelines, including when testing in populations such as children, women, and HIV-infected or otherwise immunocompromised individuals. https://www.cdc.gov/tb/publications/guidelines/testing.htm us Chuck Zafar PAC IMMUNOLOGY ORDERABLES Final Result [facility] [address] [place] [address], [place] documented in this encounter Visit Diagnoses Diagnosis Encounter for pre-employment examination Health examination of defined subpopulation documented in this encounter Care Teams Ad Setter Relationship Specialty Start Date End Date Provider, None [place] PCP - General 12/15/22 documented as of this encounter
--- OUTSIDE RECORDS SUMMARY | 2024-10-07 22:00 | XMS_ITS | Clinical Summary ---
Author Organization [facility] [address] [address] Address [address] [place] [address] Phone Care Team Providers Care Juice Bar Team Member Name Role Phone Provider, None Primary Care Provider Unavailabl e Social History Tobacco Use Types Packs/Day Years Used Date Smoking Tobacco: Never Assessed Comments Unknown Sex and Gender Information Value Date Recorded Sex Assigned at Not on file Legal Sex Female 10:19 AM CDT Gender Identity Not on file Sexual Orientation Not on file Plan of Treatment Health Maintenance Due Date Last Done Comments Hepatitis C Virus (HCV) Screening 1993 Pap Smear 2014 Cervical Cancer Screening (CCS) 08/21/2023 HPV/Cotest 08/21/2023 Influenza Immunization (#1) 2024 SARS-COV-2 Immunization ( season) 2024 Respiratory Syncytial Virus (RSV) Immunization (Adult) (1 - 1-dose 75+ series) 2068 Hepatitis B Immunization Completed 996, 1993, 1993 DTaP/Tdap/Td Immunization Discontinued 2021, 11/28/2014, 06/26/1998, Additional history exists TdaP Immunization Completed 04/26/2022, 11/28/2014 Meningococcal Immunization (ACWY) Aged Out No longer eligible based on patient's age to complete this topic Pneumococcal Immunization Combined Aged Out No longer eligible based on patient's age to complete this topic Rotavirus Immunization Aged Out No lo nger eligible based on patient's age to complete this topic Care Teams Juice Bar Team Member Relationship Specialty Start Date End Date Provider, None [place] PCP - General 12/15/22
[2024-10-07 22:15] VITALS: BP 123/69; PULSE 81
[2024-10-07 22:30] VITALS: BP 118/60; PULSE 83
[2024-10-07 22:41] VITALS: BMI 32.8
[2024-10-07 22:45] VITALS: BP 112/66; PULSE 71
--- NOTE | 2024-10-08 08:56 | PM.OBTRLD ---
OB - Triage/Final Diagnosis Visit Information Date of evaluation: 10/07/24 Reason for evaluation: decreased movement Comments/Additional reasons for admission: I have assessed the risk for this patient, Layne Schwartz, and determined that she would benefit from observation care. Evaluation Vital signs: Vital Signs - 24 hr 10/07/24 22:00 10/07/24 22:15 10/07/24 22:30 Pulse Rate 75 81 83 Blood Pressure 120/63 123/69 118/60 10/07/24 22:45 Pulse Rate 71 Blood Pressure 112/66
== END 2024-10-07 22:50 | disposition home or self-care (01) ==
PROVIDERS: Admitting Provider Student in an Organized Health Care Education/Training Program; Visit Provider Student in an Organized Health Care Education/Training Program
DX: O36.8120 Decreased fetal movements, second trimester, not applicable or unspecified (principal); Z3A.21 21 weeks gestation of pregnancy
CPT/HCPCS: G0378; G0379

== ENCOUNTER 2024-12-23 01:36 | Observation (INO) | payer BC, SELFPAY ==
[2024-12-23] VITALS (16 sets, daily range): BP systolic 100–136; BP diastolic 56–80; PULSE 85–107; TEMP 36.1; O2SAT 98–100; BMI 34.5
--- OUTSIDE RECORDS SUMMARY | 2024-12-23 01:42 | XMS_ITS | Encounter Summary ---
Author Organization [facility] Address [address] [facility] [place] [address] Phone Care Team Providers Care Carbide Grinder Name Role Phone Provider, None Primary Care Provider Unavailabl e Encounter Details Date Type Department Care Team (Late st Contact Info) Description 12/15/2022 [facility] [address] [place] [address] Chuck Zafar, PAC [address] [place] [address] Encounter for pre-employment examination Social [...] 0.42 <8.01 IU/mL 12/17/2022 9:48 AM CDT [facility] TB ANTIGEN 1 0.06 <0.35 IU/mL 12/17/2022 9:48 AM CDT [facility] TB ANTIGEN 2 0.13 <0.35 IU/mL 12/17/2022 9:48 AM CDT [facility] MITOGEN CONTROL 9.58 >0.49 IU/mL 12/18/19 9:48 AM CDT [facility] INTEPRETATION TB NEGATIVE NEGATIVE, NEGATIVE (TB antigen response less than 25% of internal negative control value) 12/17/2022 9:48 AM CDT [facility] Comment:No immune response t o Mycobacterium tuberculosis antigens was noted. M. tuberculosis infection unlikely. Blood No Phlebotomy Charged / Unknown 12/15/2022 10:25 AM CDT 12/15/2022 12:53 PM CDT Narrative [facility] - 12/17/2022 9:48 AM CDT A POSITIVE [...] Chuck Zafar PAC IMMUNOLOGY ORDERABLES Final Result [facility] [address] [place] [address], [place] documented in this encounter Visit Diagnoses Diagnosis Encounter for pre-employment examination Health examination of defined subpopulation documented in this encounter Care Teams Carbide Grinder Relationship Specialty Start Date End Date Provider, None [place] PCP - General 12/15/22 documented as of this encounter
--- OUTSIDE RECORDS SUMMARY | 2024-12-23 01:42 | XMS_ITS | Clinical Summary ---
Author Organization [facility] Address [address] [place] [address] Phone Care Team Providers Care Upholstery Bundler Name Role Phone Provider, None Primary Care [...] Comments Hepatitis C Virus (HCV) Screening 1993 Human Papillomavirus (HPV) Immunization (1 - 3-dose series) 2008 Pap Smear 2014 Cervical Cancer Screening (CCS) 08/21/2023 HPV/Cotest 08/21/2023 SARS-COV-2 Immunization ( season) 2024 Influenza Immunization (#1) 2025 Respiratory Syncytial Virus (RSV) Immunization (Adult) (1 [...] age to complete this topic Care Teams Upholstery Bundler Relationship Specialty Start Date End Date Provider, None [place] PCP - General 12/15/22
--- OUTSIDE RECORDS SUMMARY | 2024-12-23 01:42 | XMS_ITS | Data Portability ---
Author Organization [employer] , [facility] Address [address] [place] [address] Assessment No assessment recorded. Plan of Treatment Reminders Order Date Submit Date Provider Last Modified By Organization Details Last Modified Time Details Appointments OB RETURN EST 2024 10:00A M German Doan MD Not available Not available Not available OB SONOGRA M 30 2024 10:15A M Ultrasound [place] Not available Not available Not available Lab glucose toleran ce test, post-50 G, 1-hour 2024 025 [facility], [address] [place] [address], [id number], 11/27/2024 11:24:31 CBC w/ auto diff 2024 025 [facility], [address] [place] [address], [id number], 11/27/2024 12:32:01 obstetr ic screen, serum or blood [address], [address], 11/27/2024 12:00:54 Referral None recorde d. Procedures None recorde d. Surgeries None recorde d. Imaging US, obstetr ic, follow- up [address] [facility], [address] [place], [address], 11/02/2024 19:23:23 US, obstetr ic, limited 2024 025 [email or web address], [address] [place], [address], 11/28/2024 12:49:17 Medication Orders None recorde d. Patient TargetsNo targets recorded. Patient Instructions Encounter Date Encounter Id Patient Instructions Last Modified By Organization Details Last Modified Time 11/26/2024 [id number] learning about depression during Not available 11/26/2024 10:21:39 learning about screening for gestational diabetes Not available 11/26/2024 10:21:39 Reason for Referral None Reported. Results Created Date Observation Date Name Description Value Unit Range Abnormal Flag Note LastModifiedBy Organization Detail LastModifiedTime 10/12/1910/12/2024 SURES WAB(R ) ADVAN CHRISTINA VAGIN ITIS PLUS, TMA sureswab(R) adv bacterial vaginosis (bv), tma POSITI VE negati ve abnormal Not Available [address], [address], 10/12/2024 14:22:48 10/12/19 25 10/12/2024 SURES WAB(R ) ADVAN CHRISTINA VAGIN ITIS PLUS, TMA spike species NOT DETECT ED not detect ed normal Not Available [address] [address] [place], [address], 10/12/2024 14:22:48 10/12/19 25 10/12/2024 SURES WAB(R ) ADVAN CHRISTINA VAGIN ITIS PLUS, TMA spike glabrata NOT DETECT ED not detect ed normal Sadia da speci es C. albic ans, C. tropi calis , C. parap charis is, and/o r C. dubli ni is can be detec ronald, but not diffe renti ated, in the Sadia da spp. resul t. Not Available [address] [address] [place], [address], 10/12/2024 14:22:48 10/12/19 25 10/12/2024 SURES WAB(R ) ADVAN CHRISTINA VAGIN ITIS PLUS, TMA trichomonas vaginalis (TV), tma NOT DETECT ED not detect ed normal Not Available [facility] [address] [address] [place], [address], 10/12/2024 14:22:48 10/12/19 25 10/12/2024 SURES WAB(R ) ADVAN CHRISTINA VAGIN ITIS PLUS, TMA chlamydia trachomatis RNA, tma, urogenital NOT DETECT ED not detect ed normal Not Available [facility] [address] [address] [place], [address], 10/12/2024 14:22:48 10/12/19 25 10/12/2024 SURES WAB(R ) ADVAN CHRISTINA VAGIN ITIS PLUS, TMA neisseria gonorrhoeae RNA, tma, urogenital NOT DETECT ED not detect ed normal For addit ional infor maxime frost e refer to https ://ed ucati on.qu [employer]BI[employer] Ltd./f aq/FA Q154 (This link is being provi ded for nayeli gomez/ azael lutz only. ) Not Available [address] [address] [address] , [place], [address], 10/12/2024 14:22:48 11/27/19 25 11/27/2024 (50G) 1HR - GLUCO SE CHAKA ANCE TEST, GESTBo Gomez glucose (50g) 1 hour 121 mg/dL <135 normal Not Available [facility] [address] [place], [address], 11/27/2024 11:24:31 11/27/19 25 11/27/2024 OB 28W (SYPH HIV 1/2 Ag/Ab Non-Re active non-re active normal Not Available [facility] [address] [place], [address], 11/27/2024 12:00:54 06/30/11/27/2024 OB 28W (SYPH syphilis Ab Non-Re active non-re active normal Not Available [facility] [address] [place] [address], [address], 11/27/2024 12:00:54 11/27/19 25 11/27/2024 CBC (INCL UDES DIFF/ PLT) WBC 10.1 thous and/u L 4.0 - 9.8 high Not Available [facility] [address] [place] [address], [address], 11/27/2024 12:32:01 11/27/1911/27/2024 CBC (INCL UDES DIFF/ PLT) RBC 3.4 christy on/uL 3.9 - 4.9 low Not Available [facility] [address] [place] [address], [address], 11/27/2024 12:32:01 11/27/1911/27/2024 CBC (INCL UDES DIFF/ PLT) hemoglobin 10.6 g/dL 11.8 - 14.8 low Not Available [facility] [address] [place] [address], [address], 11/27/2024 12:32:01 11/27/1911/27/2024 CBC (INCL UDES DIFF/ PLT) hematocrit 32.1 % 35.5 - 44.0 low Not Available [facility] [address] [place] [address], [address], 11/27/2024 12:32:01 11/27/1911/27/2024 CBC (INCL UDES DIFF/ PLT) MCV 93.9 fL 82.0 - 99.0 normal Not Available [facility] [address] [place] [address], [address], 11/27/2024 12:32:01 11/27/1911/27/2024 CBC (INCL UDES DIFF/ PLT) MCH 31.0 pg 27.2 - 32.6 normal Not Available [place], [address], 11/27/2024 12:32:01 11/27/19 25 11/27/2024 CBC (INCL UDES DIFF/ PLT) MCHC 33.0 g/dL 31.5 - 35.5 normal Not Available [address], [address], 11/27/2024 12:32:01 11/27/19 25 11/27/2024 CBC (INCL UDES DIFF/ PLT) RDW-CV 13.8 % 11.5 - 14.5 normal Not Available [address], [address], 11/27/2024 12:32:01 11/27/19 25 11/27/2024 CBC (INCL UDES DIFF/ PLT) platelet 345 thous and/u L 140 - 350 normal Not Available [address], [address], 11/27/2024 12:32:01 11/27/19 25 11/27/2024 CBC (INCL UDES DIFF/ PLT) MPV 9.5 fL 9.3 - 12.4 normal Not Available [address], [address], 11/27/2024 12:32:01 11/27/19 25 11/27/2024 CBC (INCL UDES DIFF/ PLT) absolute neutrophil 6.65 thous and/u L 1.90 - 7.00 normal Not Available [address], [address], 11/27/2024 12:32:01 11/27/19 25 11/27/2024 CBC (INCL UDES DIFF/ PLT) absolute lymphocyte 2.51 thous and/u L 0.70 - 4.50 normal Not Available [address], [address], 11/27/2024 12:32:01 11/27/19 25 11/27/2024 CBC (INCL UDES DIFF/ PLT) absolute monocyte 0.68 thous and/u L 0.10 - 1.30 normal Not Available [address], [address], 11/27/2024 12:32:01 11/27/19 25 11/27/2024 CBC (INCL UDES DIFF/ PLT) absolute eosinophil 0.08 thous and/u L <0.70 normal Not Available [address], [address], 11/27/2024 12:32:01 11/27/19 25 11/27/2024 CBC (INCL UDES DIFF/ PLT) absolute basophil 0.08 thous and/u L <0.20 normal Not Available [address], [address], 11/27/2024 12:32:01 11/27/19 25 11/27/2024 CBC (INCL UDES DIFF/ PLT) absolute immature granulocyte 0.09 thous and/u L <0.03 high Not Available [address], [address], 11/27/2024 12:32:01 10/06/19 25 US, obste tric, 2nd trime ster No observ ation record ed. [email or web address] [facility] [address] [place] [address], [address], 10/05/2024 11:24:41 10/06/19 25 10/05/2024 US, obste tric, 2nd trime ster No observ ation record ed. [email or web address] [address], [place], [address], 10/15/2024 12:09:30 10/12/19 25 10/11/2024 US, obste tric, trans vagin al No observ ation record ed. [email or web address] [address], [place], [address], 10/11/2024 15:40:43 11/02/19 25 US, obste tric, 2nd trime ster No observ ation record ed. [email or web address] [facility] [place] [address] [facility], [place], [address], 11/01/2024 13:19:53 11/02/19 25 11/01/2024 US, obste tric, 2nd trime ster No observ ation record ed. [email or web address] [address], [place], [address], 11/01/2024 18:43:33 11/03/19 25 11/02/2024 US, obste tric, follo w-up No observ ation record ed. [email or web address] [address], [place], [address], 11/12/2024 12:33:06 Result Notes None recorded. Problems Name Problem SNOMED Code Status Onset Date Resolution Date Notes Provider Name and Address Organization Details Recorded Time Primigra geovanni [id number] Completed 201308/24/2019 Pregnanc y 1st Normal; Progress : Stable Added By: Leena Roca Add to Current Problems : NO ProblemS tatus: Resolve Not Available [facility] 2 20:45:35 Uterine size for dates discrepa ncy 927880546 Active 2013 Uterine size date discrepa ncy, antepart um conditio n or complica tion; Location : None Added By: Chinyere Braswell Add to Current Problems : NO ProblemS tatus: Current Not Available [facility] 1 13:51:37 Vaginiti s and vulvovag initis Completed 201408/24/2019 Bacteria l vaginiti s; Location : None Progress : Stable Added By: Myrna Juarez Add to Current Problems : NO ProblemS tatus: Current Bacteria l vaginiti s; Progress : Stable Added By: Myrna Juarez Add to Current Problems : NO ProblemS tatus: Resolve Not Available [facility] 2 20:45:32 Female genital organ symptoms [id number] Completed 201408/24/2019 Pelvic pain, female; Location : None Progress : Stable Added By: Leanne Prince Add to Current Problems : NO ProblemS tatus: Current Pelvic pain, female; Progress : Stable Added By: Leanne Prince Add to Current Problems : NO ProblemS tatus: Resolve Not Available [facility] 2 08:52:44 Postpart um care Completed 201410/18/2015 Visit for routine postpart um follow-u p; Location : None Progress : Stable Added By: Madeleine Pitt Add to Current Problems : YES ProblemS tatus: Resolve Not Available [facility] 2 20:45:32 Family planning educatio n done [id number] Completed 201412/21/2015 Family planning advice; Location : None Severity : Moderate Progress : Stable Added By: Malgorzata Mcfarlane Add to Current Problems : YES ProblemS tatus: Resolve Not Available [facility] 1 05:36:45 Clinical finding Completed 201412/21/2015 Encounte r for initial prescrip tion of injectab le contrace ptive; Progress : Stable Added By: Malgorzata Mcfarlane Add to Current Problems : NO ProblemS tatus: Resolve Family planning advice; Location : None Progress : Stable Added By: Malgorzata Mcfarlane Add to Current Problems : YES ProblemS tatus: Resolve Not Available [facility] 2 20:45:34 Gestatio n period, 21 weeks 68418740 Completed 201910/04/2019 21 weeks gestatio n of pregnanc y; Progress : Stable Added By: Pelra Cates Add to Current Problems : NO ProblemS tatus: Resolve Not Available [facility] 2 20:45:36 Screenin g for malignan t neoplasm of cervix Completed 201910/04/2019 Encounte r for screenin g for malignan t neoplasm of cervix; Progress : Stable Added By: Perla Cates Add to Current Problems : NO ProblemS tatus: Resolve Not Available [facility] 2 20:45:35 Gestatio n period, 23 weeks 02315805 Completed 201910/04/2019 23 weeks gestatio n of pregnanc y; Progress : Stable Added By: Leena Roca Add to Current Problems : NO ProblemS tatus: Resolve Not Available [facility] 2 08:52:44 Gestatio n period, 24 weeks 700356956 Completed 201910/04/2019 24 weeks gestatio n of pregnanc y; Progress : Stable Added By: Perla Cates Add to Current Problems : NO ProblemS tatus: Resolve Not Available [facility] [address] 20:45:[address] Concept Completed 201910/04/2019 Decrease d movement s, second trimeste r, fetus 1; Progress : Stable Added By: Jose Fuller Add to Current Problems : NO ProblemS tatus: Resolve Not Available [facility] 2 20:45:32 Gestatio n period, 27 weeks 28869217 Completed 201901/28/2020 27 weeks gestatio n of pregnanc y; Progress : Stable Added By: Heidi Amanda Add to Current Problems : NO ProblemS tatus: Resolve Not Available [facility] 2 08:52:44 Pelvic and perineal pain 970534477 Completed 201901/28/2020 Pelvic and perineal pain; Progress : Stable Added By: Heidi Amanda Add to Current Problems : NO ProblemS tatus: Resolve Not Available [facility] 2 08:52:45 [facility] [id number] 4106 Completed 201901/28/2020 Encoun r for supervis ion of other normal pregnanc y, second trimeste r; Progress : Stable Added By: Perla Cates Add to Current Problems : NO ProblemS tatus: Resolve; Start Date : 08/24/19 20 Encou nter for supervis ion of other normal pregnanc y, third trimeste r; Progress : Stable Added By: Radha Casas Add to Current Problems : NO ProblemS tatus: Resolve Not Available [facility] 2 20:45:36 Gestatio n period, 29 weeks 15339137 Completed 201901/28/2020 29 weeks gestatio n of pregnanc y; Progress : Stable Added By: Radha Casas Add to Current Problems : NO ProblemS tatus: Resolve Not Available [facility] 2 20:45:36 Large fetus causing dispropo rtion - delivere d 887556561 Completed 201901/28/2020 Maternal care for dispropo rtion due to unusuall y large fetus, fetus 1; Progress : Stable Added By: Leanne Prince Add to Current Problems : NO ProblemS tatus: Resolve Not Available [facility] 2 20:45:34 Low lying placenta 126305833 Completed 201901/28/2020 Low lying placenta NOS or without hemorrha ge, third trimeste r; Progress : Stable Added By: Catie De Leon Add to Current Problems : NO ProblemS tatus: Resolve Not Available [facility] 2 20:45:33 Gestatio n period, 30 weeks 36033792 Completed 201901/28/2020 30 weeks gestatio n of pregnanc y; Progress : Stable Added By: Jennifer Arciniega Add to Current Problems : NO ProblemS tatus: Resolve Not Available [facility] 2 20:45:33 Uterine size for dates discrepa ncy Completed 201901/28/2020 Uterine size-desi e discrepa ncy, third trimeste r; Progress : Stable Added By: Juana Vera Add to Current Problems : NO ProblemS tatus: Resolve Not Available [facility] 2 20:45:37 Gestatio n period, 32 weeks 1745723 Completed 201901/28/2020 32 weeks gestatio n of pregnanc y; Progress : Stable Added By: Catie De Leon Add to Current Problems : NO ProblemS tatus: Resolve Not Available [facility] 2 20:45:37 Gestatio n period, 34 weeks 84729289 Completed 201901/28/2020 34 weeks gestatio n of pregnanc y; Progress : Stable Added By: Cece Ulloa Add to Current Problems : NO ProblemS tatus: Resolve Not Available [facility] 2 20:45:34 Gestatio n period, 36 weeks 00033071 Completed 201901/28/2020 36 weeks gestatio n of pregnanc y; Progress : Stable Added By: Geraldine Chavez Add to Current Problems : NO ProblemS tatus: Resolve Not Available [facility] 2 20:45:35 Antenata l screenin g Completed 201901/28/2020 Encounte [...] 08/24/19 20 Not Available [facility] 2 08:52:43 Gestatio n period, 37 weeks 90690374 Completed 201901/28/2020 37 weeks gestatio n of pregnanc y; Progress : Stable Added By: Juana Vera Add to Current Problems : NO ProblemS tatus: Resolve Not Available [facility] 2 08:52:44 Gestatio n period, 38 weeks 40578361 Completed 201901/28/2020 38 weeks gestatio n of pregnanc y; Progress : Stable Added By: Radha Casas Add to Current Problems : NO ProblemS tatus: Resolve Not Available [facility] 2 20:45:35 Pregnanc y 73444807 Active 2024 Radha Casas CNM [address] [place], [address] , [facility] 5 08:25:09 Carrier of spinal muscular atrophy [id number] 7926771 Active 2024 REBECA ROA NP [address] [place], [address] , [facility] 5 11:14:27 Problem Notes None recorded. Procedures Surgical History Date Name Laterality Status Provider Name and Address Organization Details Recorded Time 0 Date of Last Pap Smear completed Pati Rodriguez [facility] [email or web address] [facility] 06/24/2021 20:15:10 Imaging Results None recorded. Procedure Notes None recorded. Medical Equipment None [...] FLUoxeti ne 10 mg oral tablet RxNorm: 348837 Allow Substitu tion: True Refill Denied: No Edited by: Araseli hyde(Schifa noCrow B) on 04/22/20 Stopped by: Araseli hyde(Schifa noCeceliaja B) on 04/22/20 Not Available Not Available Not Available Anucort-H [...] nausea 09/12 completed Zofran 4mg Tablet RxNorm: 551864 Allow Substitu tion: True Refill Denied: No Not Available Not Available Not Available amoxicill in 875 mg tablet TAKE 1 TABLET BY MOUTH EVERY 12 HOURS 07/13 completed Not Available Not Available Not Available Metrogel Vaginal 0.75 % (37.5 mg/5 gram) Insert 1 applicat orful(s) in vagina at bedtime for 5 days 11/12 completed MetroGel 0.75% Vaginal Gel RxNorm: 680094 Allow Substitu tion: True Refill Denied: No Not Available Not Available Not Available Depo-Prov era 150 mg/mL intramusc ular suspensio n 1 injectio n IM q3mos. Please fill and bring to office prior to appt. 08/17 completed Depo-Pro vera 150mg/1m l Injectio n RxNorm: 9735010 Allow Substitu tion: True Refill Denied: No Not Available Not Available Not Available fluoxetin e 20 mg tablet take 1 tablet (20 mg) by oral route every day 06/11 completed FLUoxeti ne 20 mg oral tablet RxNorm: 828176 Allow Substitu tion: True Refill Denied: No Edited by: Araseli hyde(Kimberley noCeceliaja B) on 04/18/20 Stopped by: Araseli hyde(Kimberley no Anbj B) on Not Available Not Available Not Available docusate sodium 100 mg capsule TAKE 1 CAPSULE BY MOUTH TWICE DAILY 06/26 completed Not Available Not Available Not Available clindamyc in 2 % vaginal cream INSERT 1 APPLICAT ORFUL VAGINALL Y EVERY DAY FOR 7 DAYS 11/01 completed Not Available Not Available Not Available Prozac 10 mg capsule take 1 capsule (10 mg) by oral route once daily 04/09 completed PROzac 10 mg oral capsule RxNorm: 441561 Allow Substitu tion: True Refill Denied: No Edited by: Araseli hyde(Kimberley noCeceliaja B) on 04/09/20 Stopped by: Araseli hyde(Carlosa no Anja B) on 04/09/20 Not Available Not [...] Not Available Not Available Not Available Miralax 03/14 /2025 completed Not Available Not Available Not Available levonorge strel 1.5 mg tablet take 1 tablet (1.5 mg) by oral route once 02/07 completed levonorg estreL 1.5 mg oral tablet RxNorm: 888585 Allow Substitu tion: True Refill Denied: No Edited by: [email or web address]( Juana Vera ) on 02/08/20 Stopped by: Juana Garcia ) on 02/08/20 Not Available Not Available Not Available Francia baldwin Complete active Not Available Not Available Not Available Vitals Date Recorded Body height Body mass index (BMI) Body weight Systolic And Diastolic Provider Name and Address Organization Details Last Updated DateTime 11/01/2024 172.72 cm 33.3 kg/m2 51807.01 g 120/70 mm[Hg] Erika Morris [facility] [email or web address] [facility] IV 11/01/2024 13:32:08 Date Recorded Body height Body mass index (BMI) Body weight Systolic And Diastolic Provider Name and Address Organization Details Last Updated DateTime 11/02/2024 172.72 cm 33.5 kg/m2 35919.32 g 110/70 mm[Hg] Any Macias [facility] [email or web address] [facility] IV 11/02/2024 12:07:09 Date Recorded Body height Body mass index (BMI) Body weight Body temperature Systolic And Diastolic Provider Name and Address Organization Details Last Updated DateTime 11/14/2024 172.72 cm 33.2 kg/m2 09588.5 7 g 98.1 [degF] 120/82 mm[Hg] Danii Shahid [facility] [email or web address] [facility] IV 11:39:03 Date Recorded Body weight Body mass index (BMI) Body height Systolic And Diastolic Provider Name and Address Organization Details Last Updated DateTime 11/26/2024 128115.69 088 g 34.1 kg/m2 172.72 cm 118/82 mm[Hg] [facility] [email or web address] [facility] IV 11/26/2024 10:12:33 Date Recorded Body weight Body mass index (BMI) Body height Systolic And Diastolic Provider Name and Address Organization Details Last Updated DateTime 12/10/2024 326348.28 325 g 34.2 kg/m2 172.72 cm 122/70 mm[Hg] [facility] 12/10/2024 10:44:35 Social History Question Answer Notes LastModified by Organizat ion Details LastModified Time Tobacco Smoking Status Former Smoker Mayra Aponte elle, [facility] [employer] 08/10/2024 10:10:06 If You Are , What Was Your Level Of Alcohol Consumption Prior To ? Occasional [email or web address] Information not available 08/10/2024 How Many Years Have You Consumed Alcohol? 8 Information not available 08/10/2024 Are You Blind Or Do You Have Difficulty Seeing? No [email or web address] Information not available 07/20/2024 Are You Deaf Or Do You Have Serious Difficulty Hearing? No [email or web address] Information not available 07/20/2024 What Type Of Diet Are You Following? REGULAR [email or web address] Information not available 08/10/2024 When Did You Quit Smoking? 1-5yearssincel astcizoëette [email or web address] Information not available 08/10/2024 How Many Children Do You Have? 2 [email or web address] Information not available 06/11/2024 What Is Your Relationship Status? Single Information not available 06/24/2021 Are You Sexually Active? Yes Information not available 06/24/2021 At What Age Did You Start Smoking Tobacco? 16 [email or web address] Information not available 08/10/2024 What Types Of Sporting Activities Do You Participate In? Walking Information not available 06/24/2021 How Many Years Have You Smoked Tobacco? 6 [email or web address] Information not available 08/10/2024 Sex: Unknown Functional Status Question Answer Note LastModified by Organizat ion Details LastModified Time Do you use any illicit or recreational drugs? No [email or web address] Information not available 07/20/2024 Do you or have you ever used any other forms of tobacco or nicotine? No [email or web address] Information not available 08/10/2024 What is your level of alcohol consumption? None [email or web address] Information not available 08/10/2024 What is your exercise level? None [email or web address] Information not available 08/10/2024 Mental Status None [...] Colon Cancer N Cytomegalovirus N Hyperthyroidism N MRSA N Breast Cancer N Herpes (HSV) N Blood Transfusion N Lung Cancer N Depression N Hypothyroidism N Incontinence N Panic Attacks N Neurological Disorder N Deep Vein Thrombosis N Anxiety Disorder N Autoimmune disease N Arthritis N Tuberculosis/Positive PPD N Shingles N Polycystic Ovarian Syndrome N Infertility N Cervical Cancer N Hematuria N Chlamydia N Stroke N Varicosities N Seasonal allergies N Crohn's Disease N Alzheimer's/Dementia N COPD/Emphysema N Endometriosis N HPV/Genital Warts N IBS (Irritable Bowel Syndrome) N History of Abnormal Pap N High Cholesterol N Liver Disease N Kidney Infection N Fibromyalgia N Ulcer N Kidney Disease N HIV N Gallbladder disease N Sickle Cell Disease/Trait N Von Willebrand disease N ADD/ADHD N Eating Disorder N Anemia N Diabetes Mellitus (non-insulin dependent ) N Multiple Sclerosis N Ovarian Problems N Gonorrhea N Frequent Urinary Tract infections N Osteopenia N Headaches/migraines N GERD (reflux) N Ovarian Cancer N Diabetes (insulin dependent) N Seizures/Epilepsy N Breast Problems N Fibroids N Asthma N Heart Attack N Lupus N Endometrial Cancer N Rubella N Blood Clotting Disorder N Bipolar Disorder N Diabetes Mellitus (during ) N Ulcerative Colitis N Hepatitis N Heart Disease N Pulmonary Embolism N RPR N Chicken Pox N Osteoporosis N Gynecological History Statement/Question Response Date of Last Colonoscopy Date of last HPV Date of LMP 05/15/2024 Most Recent Bone Density Date of Last Pap Smear 08/24/2019 Duration of Flow (days) 5 Most Recent Mammogram Current Control Method Age at Menarche 11 Obstetrics History GPAL:G 3 P 2 0 0 2 Type Value Full Term 2 Living 2 Total 3 Past Encounters Encounter ID Performer Location Encounter Start Date Encounter Closed Date Diagnosis/Indication Diagnosis SNOMED-CT Code Diagnosis ICD10 Code Diagnosis Note [id number] Radha Casas CNM [facility] [address] [address] 06/11/2024 12:40:09 06/11/2024 13:26:33 Generalized abdominal pain 240600744 R10.84 No evidence of IUP on US. F/u in 4 wks.bleedi ng precaution s discussed. Start prenatalsP t will schedule NOB appt w/[facility] [id number] REBECA ROA NP [facility] [address] [place] [address] 06/26/2024 13:58:32 06/26/2024 15:41:50 Acute constipation 084347297 K59.00 Patient reports that she cannot swallow docusate. liquid prescribed . Patient to keep scheduled appointmen t for confirmati on. Nausea and vomiting in [id number] O21.9 Bleeding hemorrhoids 515 43024 K64.9 Patient was seen in the ER for a rectal bleeding from an inflamed external hemorrhoid . Patient reports that the PA in the ER stated that there was a small amount of blood in the vaginal vault. patient denies VB or abnormal discharge. Patient advised to increase water intake and take prescribed stool softeners. [id number] Radha Casas CNM [facility] [address] [place] [address] 07/13/2024 12:01:59 07/15/2024 10:06:03 Uncertain viability of [id number] O36.80X0 IUP w/+cardiac activity. Small CRISTIANO @ 1.93 cmAdvised pt to f/u immediatel y if temp>101.; abdominal pain, vaginal bleeding greater than 1 pad/hr for greater than 2 hours; vaginal bleeding with or without cramping; bleeding w/clots; cramping like a period.F/u next routine appointmen t for NOB visit sooner if experienci ng more spotting. screening 2437 45058 Z36.89 [id number] REBECA ROA NP [facility] [address] [place] [address] 07/20/2024 16:20:13 07/26/2024 14:00:54 Bleeding from female genital tract during [id number] O46.90 discussed Vaginal spotting occurs in half [...] understand ing. RTC for 1st ob visit. [id number] MAUDE FARIA, TIME STUDY TECHNOLOGIST [facility] [address] [place] [address] 07/25/2024 12:14:47 07/26/2024 14:26:30 Gestation period, 10 weeks 32973607 Z3A.10 Spotting p er vagina in 236333293 O26.851 Subchorionic hematoma 60 6288596 O20.8 [id number] RAVI ROBLEDO, MARILIN [facility] [address] [place] [address] 08/02/2024 11:38:38 08/06/2024 15:59:43 Pain in pelvis 95009564 R10.2 Pt is here for a MINDA [...] next scheduled appt Gestation period, 11 weeks 62588966 Z3A.11 Multigravida 358035341 Z 34.81 [id number] REBECA ROA NP [address] [address] 08/10/2024 10:01:53 08/10/2024 10:29:02 Gestation period, 12 weeks 02653333 Z3A.12 Normal 6323891 2 Z34.90 Pt is here for a MINDA appointmen t. She is taking vitamins. She has no complaints or questions. Reports feeling movement. Denies vaginal bleeding, abdominal cramps, N/V, contractio ns, or LOF. Denies headache, vision changes, swelling of hands or face, and epigastric pain. Discussed PTL and precaution s given. There are no identifiab le risk factors for pre-term labor. [id number] Radha Casas CNM [facility] [address] [place] [address] 08/22/2024 14:14:02 08/22/2024 18:01:41 Gestation period, 14 weeks 89370616 Z3A.14 +CA on USAdvised pt to f/u immediatel y if temp>101.; abdominal pain, vaginal bleeding greater than 1 pad/hr for greater than 2 hours; vaginal bleeding with or without cramping; bleeding w/clots; cramping like a period. [id number] REBECA ROA, MARILIN [facility] [address] [place] [address] 09/07/2024 10:05:32 09/12/2024 13:54:03 Normal 82824944 Z34.90 Pt is here for a MINDA [...] for pre-term labor. Gestation period, 16 weeks 35922357 Z3A.16 [id number] REBECA ROA NP [address] [address] 10/05/2024 09:57:59 10/05/2024 11:28:22 Normal 64681025 Z34.90 Pt is here for a MINDA [...] for pre-term labor. Gestation period, 20 weeks 06107751 Z3A.20 [id number] ROCIO FITCH [facility] [address] [place] [address] 10/08/2024 13:36:43 10/08/2024 14:21:35 Normal 44221811 Z34.82 Gestation period, 21 weeks 99097205 Z3A.21 [id number] Leena Roca MD [facility] [address] [place] [address] 10/11/2024 11:55:20 10/11/2024 14:25:49 Spotting per vagina in 540248548 O26.852 -I have reviewed TVUS and discussed with patient. US WNL-Vagina l spotting occurs in half of all pregnancie s, especially in the first 12 weeks. Most of the time, spotting will resolve on its own. It often occurs after intercours e or after straining to use the bathroom when constipate d and is not a sign of miscarriag e. There is nothing you can do to prevent or provoke the spotting. If the spotting is light, avoid intercours e for a few days. If the spotting becomes heavy, like a period (with or without cramping), avoid intercours e and please call us.-Vagina l swab to r/o infection The patient was initially evaluated by ROCIO Fitch, who completed the history examinatio n, and preliminar y assessment . I, Leena Roca MD, entered the room to review and discuss the care plan with the patient. After reviewing the specific findings and documentat ion provided by Maude, I confirmed the diagnosis and care plan, addressing any additional concerns or questions raised by the patient. The final plan of care was developed ana huynh and has been documented accordingl y. Gestation period, 21 weeks 88137136 Z3A.21 Normal 4345599 2 Z34.82 [id number] Radha Casas CNM [facility] [address] [place] [address] 11/01/2024 12:31:36 11/01/2024 13:21:07 [id number] Radha Casas CNM [facility] [address] [place] [address] 11/01/2024 13:02:46 11/01/2024 13:39:48 Reduced movement 317063248 O36.8120 Gestation period, 24 weeks 296980658 Z3A.24 labor precaution s given. FM counts discussed. F/u in L&D if experienci ng decreased movement, leaking fluid, 4 or more contractio ns in 1 hour not relieved by rest and fluids, or regular uterine contractio ns increasing in frequency and/or intensity. [id number] REBECA ROA NP [facility] [address] [place] [address] 11/02/2024 11:15:58 11/02/2024 14:43:34 Gestation period, 24 weeks 208239073 Z3A.24 Normal 7188922 2 Z34.90 Pt is here for a MINDA appointmen t. She is taking vitamins. She has no complaints or questions. Reports feeling movement. Denies vaginal bleeding, abdominal cramps, N/V, contractio ns, or LOF. Denies headache, vision changes, swelling of hands or face, and epigastric pain. Discussed PTL and precaution s given. There are no identifiab le risk factors for pre-term labor. [id number] [facility] [address] [place] [address] 11/14/2024 11:19:51 11/14/2024 12:15:12 Gestation period, 26 weeks 63840803 Z3A.26 Normal 9757094 2 Z34.92 Pt is here for a MINDA appointmen [...] Reminded pt that I do not delivery babies. Will plan for pt to start meeting delivery providers after 28 week visit. [id number] REBECA ROA NP [facility] [address] [place] [address] 11/26/2024 10:04:09 11/26/2024 10:50:15 Depression screening 875353893 Z13.31 See Screening Section for EPDS Questionna cyndee Result Normal 4549703 2 Z34.92 Pt is here for a MINDA appointmen t. She is taking vitamins. She has no complaints or questions. Reports feeling movement. Denies vaginal bleeding, abdominal cramps, N/V, contractio ns, or LOF. Denies headache, vision changes, swelling of hands or face, and epigastric pain. Discussed PTL and precaution s given. There are no identifiab le risk factors for pre-term labor. screening 2437 37809 Z36.89 [id number] REBECA ROA NP [facility] [address] [place] [address] 12/10/2024 10:39:13 12/10/2024 11:22:29 Normal 45499921 Z34.90 Pt is here for a MINDA appointbrandie kapoor. She is taking vitamins. She has no complaints or questions. Reports feeling movement. Denies vaginal bleeding, abdominal cramps, N/V, contractio ns, or LOF. Denies headache, vision changes, swelling of hands or face, and epigastric pain. Discussed PTL and precaution s given. There are no identifiab le risk factors for pre-term labor. Gestation period, 30 weeks 24665886 Z3A.30 Health Concerns Section Related Observation LastModified by Organization Detai ls LastModified Time None Recorded Concern Status LastModified by Organization Details LastModified Time None Recorded Advance Directives Directive None Recorded Payers Insurance Date Sequence Insurance Name Policy Number Policy Snow Covered Member ID Snow Member ID Guarantor Name 12/07/2024 1 [facility] (MEDICAID REPLACEMENT - HMO) [id number] Layne Schwartz [id number] Layne Schwartz Notes Date Note Type Note Provider Name and Address Organization Details Recorded Time 11/01/2024 text/html ROS as noted in the HPI Patient is here today for a routine OB visit. She is currently at weeks gestation.24.5 vitamins: yes She has felt movement. She denies any complaints of the presence of vaginal bleed, leaking fluid, abdominal cramps, nausea, vomiting, headache or visual disturbances. Patient c/o decrease movement Radha Casas CNM [address] [place], [address], [place] [facility] 11/01/2024 13:39:43 11/02/2024 text/html ROS as noted in the HPI Patient is here today for a routine OB visit. She is currently at 24.6 weeks gestation. vitamins: yes She has felt movement.She denies any complaints of the presence of vaginal bleed, leaking fluid, abdominal cramps, nausea, vomiting, headache or visual disturbances. REBECA ROA NP [address] [place], [address], [facility] 11/02/2024 14:16:49 11/14/2024 text/html Layne is here with c/o abdominal pain lasting for the duration of this . She states she is feeling movement from baby as usual. She is taking some flintstones vitamins instead of vitamin. She says her job is causing her to have contractions. She says she's been having cramping since she got . she's asking to get a doctors note stating she can't work. She does not c/o any bleeding or leaking fluid. KEVYN RAMAN [facility] [place], [address], [employer] [facility] 11/14/2024 11:57:26 11/26/2024 text/html Patient is here today for a routine OB visit. She is currently at 28.2 weeks gestation. vitamins: yes She has felt movement.She denies any complaints of the presence of vaginal bleed, leaking fluid, abdominal cramps, nausea, vomiting, headache or visual disturbances. Patient states that she have been feeling pressure down in her vaginal area for about a week. EPDS is 3, ANGELLA is 0. 1 Hr. Glucose @ 9:17 am REBECA ROA NP [address] [place], [address], [facility] 11/26/2024 10:46:18 12/10/2024 text/html Patient is here today for a routine OB visit. She is currently at 30.2 weeks gestation. vitamins: no She has felt movement.She denies any complaints of the presence of vaginal bleed, leaking fluid, abdominal cramps, nausea, vomiting, headache or visual disturbances. Pt. states that baby feels low REBECA ROA, MARILIN [address] [facility], [place], [address], [facility] 12/10/2024 10:59:23 OBGyn Episode Ob Episode Information Episode Created Date Number of Fetuses Patient Bloodtype Patient rh Status Prepregnancy Weight lbs Domestic Partner Domestic Partner Phone Father Name District Leader Status 08/14/19 22 1 CLOSED Fetus Data First Name Last Name Admitted to NICU Weight (g) Sex Living Outcome Pediatric Complications Fetus ID Race Codes Race Delivery Type 3401.94 F Full Term [id number] Renny Calculation Initial Renny Date Initial Exam [...] Domestic Partner Domestic Partner Phone Father Name District Leader Status 08/14/19 22 1 CLOSED Fetus Data First Name Last Name Admitted to NICU Weight (g) Sex Living Outcome Pediatric Complications Fetus ID Race Codes Race Delivery Type 3628.73 6 F Full Term [id number] Renny Calculation Initial Renny Date Initial Exam [...] Domestic Partner Domestic Partner Phone Father Name District Leader Status 07/15/19 25 1 B Positive OPEN Fetus Data First Name Last Name Admitted to NICU Weight (g) Sex Living Outcome Pediatric Complications Fetus ID Race Codes Race Delivery Type [id number] Problems Problem Notes Problem Name Start Date End Date Resolution Snomed Code Not e Carrier of spinal muscular atrophy 08/27/2024 [id number] Renny Calculation Initial Renny Date Initial Exam [...] Ultra Sound Latest Days Gestation 0 0 Pre- Flowsheet Flowsheet Date 07/20/2024 Salgado Score Blood Edema Fundus Height Fundus Units Glucose Ketones Leukocytes Nitrite Labor Signs Protein Cervic Dilation Cervic Effacement Cervic Station none neg Type Weight in lbs Pre/Post Dialysis Refused Weight 211.488717230732 BP Diastolic BP Location Tested BP Systolic [...] Type Weight in lbs Pre/Post Dialysis Refused 212.230933498943 BP Diastolic BP Location Tested BP Systolic [...] in lbs Pre/Post Dialysis Refused With clothes 201.116282034980 BP Diastolic BP Location Tested BP Systolic BP Type 80 118 sitting Fetus Heart Rate Present A 163 Present Fetus Movement A No Comments OB problem visit. c/o crampalfredo ng. Denies any LOF or vaginal bleeding. [...] Type Weight in lbs Pre/Post Dialysis Refused 212.72185937369 BP Diastolic BP Location Tested BP Systolic [...] in lbs Pre/Post Dialysis Refused With clothes 210.536063344078 BP Diastolic BP Location Tested BP Systolic [...] Type Weight in lbs Pre/Post Dialysis Refused 214.035742717232 BP Diastolic BP Location Tested BP Systolic [...] in lbs Pre/Post Dialysis Refused With clothes 215.750210711118 BP Diastolic BP Location Tested BP Systolic BP Type 60 102 sitting Fetus Heart Rate Present A 144 Present Fetus Movement A Yes Comments anatomy incomplete 49%tile a nterior placenta. RTC in 4 wks to complete US Flowsheet Date 10/08/2024 Salgado Score Blood Edema Fundus Height Fundus Units Glucose Ketones Leukocytes Nitrite Labor Signs Protein Cervic Dilation Cervic Effacement Cervic Station none none none Type Weight in lbs Pre/Post Dialysis Refused Weight 218.264711896004 BP Diastolic BP Location Tested BP Systolic BP Type 68 116 Fetus Heart Rate Present A 140 Present Fetus Movement A Yes Comments ER follow up visit. Was sitt ing up in bed last night and felt a pop right above her umblicius. Denied any pain when it happened and denies any pain today. Has felt movement, denies any bleeding or leaking of fluid. Patient states ER told her could be diastisis or hernia. Education provided on both. No hernia palpated on exam today. Pt will monitor for changes. Keep next scheduled visit. Flowsheet Date 10/11/2024 Salgado Score Blood Edema Fundus Height Fundus Units Glucose Ketones Leukocytes Nitrite Labor Signs Protein Cervic Dilation Cervic Effacement Cervic Station none none none neg Type Weight in lbs Pre/Post Dialysis Refused With clothes 216.90938670296 BP Diastolic BP Location Tested BP Systolic BP Type 70 L arm 112 sitting Fetus Heart Rate Present A 148 Present Fetus Movement A Yes Comments OB problem visit for vaginal spotting for the past 2 days when wiping. US today WNL. Vaginal swab to r/o vaginitis today. Discussed pelvic rest until spotting stops, precautions given. Keep next scheduled visit Flowsheet Date 11/01/2024 Salgado Score Blood Edema Fundus Height Fundus Units Glucose Ketones Leukocytes Nitrite Labor Signs Protein Cervic Dilation Cervic Effacement Cervic Station Type Weight in lbs Pre/Post Dialysis Refused BP Diastolic BP Location Tested BP Systolic BP Type Fetus Heart Rate Present Fetus Movement Comments Flowsheet Date 11/01/2024 Salgado Score Blood Edema Fundus Height Fundus Units Glucose Ketones Leukocytes Nitrite Labor Signs Protein Cervic Dilation Cervic Effacement Cervic Station Type Weight in lbs Pre/Post Dialysis Refused With clothes 218.441495517374 BP Diastolic BP Location Tested BP Systolic BP Type 70 120 sitting Fetus Heart Rate Present A 155 Fetus Movement A Yes Comments UC visit - decreased movemen t. Good movement & tone observed on US. F/u next routine appt Flowsheet Date 11/02/2024 Salgado Score Blood Edema Fundus Height Fundus Units Glucose Ketones Leukocytes Nitrite Labor Signs Protein Cervic Dilation Cervic Effacement Cervic Station Type Weight in lbs Pre/Post Dialysis Refused With clothes 220.221165732493 BP Diastolic BP Location Tested BP Systolic BP Type 70 110 sitting Fetus Heart Rate Present A 141 Present Fetus Movement A Yes Comments anatomy complete anterior pl acenta, AFV WNL. RTC in 4 wks for gtt and 3T labs Flowsheet Date 11/14/2024 Salgado Score Blood Edema Fundus Height Fundus Units Glucose Ketones Leukocytes Nitrite Labor Signs Protein Cervic Dilation Cervic Effacement Cervic Station none neg Type Weight in lbs Pre/Post Dialysis Refused Weight 218.505963629783 BP Diastolic BP Location Tested BP Systolic BP Type 82 120 Fetus Heart Rate Present A 132 Present Fetus Movement A Yes Comments Pt reports irregular crampin g. 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 States that this cramping has happened during every . Denies bleeding. Cramping is not regular. BM's WNL. Pt reports she will only drink up to 1 bottle of water daily. Discussed dehydration and adequate water intake. Regular restriction note given. Will RTC for next apt and re-assess water intake. Declines ordering support belt today, might order one next visit. Flowsheet Date 11/26/2024 Salgado Score Blood Edema Fundus Height Fundus Units Glucose Ketones Leukocytes Nitrite Labor Signs Protein Cervic Dilation Cervic Effacement Cervic Station 28 cm none neg Type Weight in lbs Pre/Post Dialysis Refused 224.883217505352 BP Diastolic BP Location Tested BP Systolic BP Type 82 118 sitting Fetus Heart Rate Present A 142 Present Fetus Movement A Yes Comments gtt and 3T labs today. Tdap letter given. planning to deliver [facility] desires to breast feed. discussed tubal however partner to get vasectomy Flowsheet Date 12/10/2024 Salgado Score Blood Edema Fundus Height Fundus Units Glucose Ketones Leukocytes Nitrite Labor Signs Protein Cervic Dilation Cervic Effacement Cervic Station 27 cm none neg Type Weight in lbs Pre/Post Dialysis Refused 225.411851197452 BP Diastolic BP Location Tested BP Systolic BP Type 70 122 sitting Fetus Heart Rate Present A 151 Present Fetus Movement A Yes Comments Discussed position due to feeling of baby being low. No other OB concerns RTC in 2 w Menstrual History Last Menstrual Date Menses Monthly [...]
--- NOTE | 2024-12-23 02:17 | OBADM ---
This patient, Layne Schwartz, admitted to the OB room OB Post 115 for observation. Patient/family oriented to hospital policies and general routines including ID bracelet, bed and alarms, visiting hours, pain management, procedures, bathroom and other care routines, personal items, smoking policy, room service/diet, and visiting hours. Patient/Family are encouraged to report perceived risks to care and to ask questions if they do not understand what they are told or what they should do.
[2024-12-23 02:18] LABS: Add Urine Microscopic? YES; Appearance Urine Cloudy (Clear); Glucose Urine UA Negative (Negative); Leukocyte Esterase Ur 2+ LEU/UL (Negative); Nitrate Urine Negative (Negative); Non Pathogenic Casts 0-2; Specific Grav Ur 1.022 (1.001-1.035)
[2024-12-23] MEDS: CALCIUM CARBONATE (TUMS) 500 MG (200 MG ELEMENTAL) PO (02:44)
--- NOTE | 2024-12-24 14:43 | PM.OBTRLD ---
OB - Triage/Final Diagnosis Visit Information Reason for evaluation: threatened labor Comments/Additional reasons for admission: I have assessed the risk for this patient, Layne Schwartz, and determined that she would benefit from observation care. Evaluation Laboratory results: Laboratory Tests 12/23/24 01:56 Urine Color Yellow Urine Appearance Cloudy H Urine pH 6.5 Ur Specific [place] 1.022 Urine Protein Negative Urine Glucose (UA) Negative Urine Ketones Trace H Ur Blood (Man) Negative Urine Nitrate Negative Urine Bilirubin Negative Urine Urobilinogen 1.0 Leukocyte Esterase Rfl 2+ H Urine RBC 0-2 Urine WBC 11-20 H Ur Squamous Epith Cells Many H Urine Bacteria 1+ H Urine Casts 0-2
== END 2024-12-23 03:00 | disposition home or self-care (01) ==
PROVIDERS: Admitting Provider Obstetrics & Gynecology; Visit Provider Obstetrics & Gynecology
DX: O47.03 False labor before 37 completed weeks of gestation, third trimester (principal); Z3A.32 32 weeks gestation of pregnancy
CPT/HCPCS: 81001; A9270; G0378; G0379